=== PATIENT | male | born 1945 | race Caucasian/White ===

== ENCOUNTER 2016-04-05 08:00 | Outpatient (CLI) | payer MEDICARE, OTHER | END 2016-04-05 23:59 | DX: M05.70 Rheumatoid arthritis with rheumatoid factor of unspecified site without organ or systems involvement (principal); Z79.899 Other long term (current) drug therapy ==

== ENCOUNTER 2016-04-06 16:44 | Outpatient (CLI) | payer MEDICARE, OTHER | END 2016-04-06 16:45 | disposition home or self-care (01) | DX: M79.661 Pain in right lower leg (principal) ==

== ENCOUNTER 2016-04-08 10:35 | Emergency (ER) | payer MEDICARE, OTHER ==
[2016-04-08] MEDS ORDERED: PIPERACILLIN/TAZOBACTAM 3.375 GM in SODIUM CHLORIDE 0.9% MINIBAG 100 ML IV STA (12:30)
[2016-04-08] MEDS ORDERED: oxyCODONE 5 MG TABLET PO STA ×2 (12:30→17:26)
[2016-04-08] MEDS ORDERED: VANCOMYCIN INJ 1 GM in SODIUM CHLORIDE 0.9% 250 ML IV STA (12:30)
[2016-04-08] MEDS ORDERED: oxyCODONE 5 MG TABLET ONE ×2 (12:58→17:26)
[2016-04-08] MEDS ORDERED: VANCOMYCIN 1 GM VIAL ONE (15:33)
== END 2016-04-08 17:36 | disposition home or self-care (01) ==
DX: R27.0 Ataxia, unspecified (principal); L03.116 Cellulitis of left lower limb; L03.115 Cellulitis of right lower limb; E11.9 Type 2 diabetes mellitus without complications; Z79.84 Long term (current) use of oral hypoglycemic drugs; I10 Essential (primary) hypertension; E78.00 Pure hypercholesterolemia, unspecified; M19.90 Unspecified osteoarthritis, unspecified site; Z87.19 Personal history of other diseases of the digestive system; F17.200 Nicotine dependence, unspecified, uncomplicated
CPT/HCPCS: 36415; 73590; 80048; 83605; 85025; 87040; 96365; 96375; 99283; 99284; A9270; J3370

== ENCOUNTER 2016-04-12 11:14 | Inpatient (IN) | payer MEDICARE, OTHER ==
[2016-04-12] MEDS ORDERED: AMPICILLIN/SULBACTAM 3 GM in SODIUM CHLORIDE 0.9% MINIBAG 100 ML IV STA (13:07)
[2016-04-12] MEDS ORDERED: VANCOMYCIN INJ 1 GM in SODIUM CHLORIDE 0.9% 250 ML IV STA (13:07)
[2016-04-12] MEDS ORDERED: MORPHINE 2 MG/ML SYRINGE IVP STA (13:08)
[2016-04-12] MEDS ORDERED: VANCOMYCIN INJ 2 GM in SODIUM CHLORIDE 0.9% 500 ML IV STA (13:09)
[2016-04-12] MEDS ORDERED: SODIUM CHLORIDE FLUSH 0.9% 10 ML SYRINGE IVP PRN (13:38)
[2016-04-12] MEDS ORDERED: ONDANSETRON 4 MG/2 ML VIAL IVP PRN (13:38)
[2016-04-12] MEDS ORDERED: VANCOMYCIN PER PHARMACY 1 GM in SODIUM CHLORIDE 0.9% 250 ML IV SCH (14:00)
[2016-04-12] MEDS ORDERED: MORPHINE 2 MG/ML SYRINGE ONE (14:33)
[2016-04-12] MEDS ORDERED: HYDROcod/ACETAM 5/325 MG TABLET PO PRN (14:33)
[2016-04-12] MEDS: SODIUM CHLORIDE FLUSH 0.9% 10 ML SYRINGE IVP SCH ×2 (15:49→21:04)
[2016-04-12] MEDS: NICOTINE 21 MG PATCH TOP SCH (16:51)
[2016-04-12] MEDS: INSULIN ASPART 300 UNIT/3 ML PEN SUBQ SCH ×2 (16:51→21:04)
[2016-04-12] MEDS: CEFEPIME 2 GM in SODIUM CHLORIDE 0.9% MINIBAG 100 ML IV SCH (17:11)
[2016-04-12] MEDS ORDERED: oxyCODONE 5 MG TABLET PO SCH (20:09)
[2016-04-12] MEDS: LORazepam 0.5 MG TABLET PO SCH (21:02)
[2016-04-12] MEDS: ATORVASTATIN 10 MG TABLET PO SCH (21:03)
[2016-04-12] MEDS: VERAPAMIL ER 120 MG TABLET PO SCH (23:21)
[2016-04-13] MEDS: oxyCODONE 5 MG TABLET PO PRN ×5 (01:33→22:25)
[2016-04-13] MEDS: MORPHINE 2 MG/ML SYRINGE IVP PRN ×3 (05:24→20:33)
[2016-04-13] MEDS: SODIUM CHLORIDE FLUSH 0.9% 10 ML SYRINGE IVP SCH ×3 (05:25→22:20)
[2016-04-13] MEDS: LEVOTHYROXINE 25 MCG TABLET PO SCH (06:18)
[2016-04-13] MEDS: LORazepam 0.5 MG TABLET PO SCH ×3 (06:18→22:25)
[2016-04-13] MEDS: INSULIN ASPART 300 UNIT/3 ML PEN SUBQ SCH ×4 (08:15→20:39)
[2016-04-13] MEDS: POLYETHYLENE GLYCOL 3350 17 GM PACKET PO SCH (08:16)
[2016-04-13] MEDS: ENOXAPARIN 40 MG/0.4 ML SYRINGE SUBQ SCH (08:16)
[2016-04-13] MEDS: CEFEPIME 2 GM in SODIUM CHLORIDE 0.9% MINIBAG 100 ML IV SCH ×2 (08:16→20:35)
[2016-04-13] MEDS: hydroCHLOROthiazide 25 MG TABLET PO SCH (08:17)
[2016-04-13] MEDS: VERAPAMIL ER 120 MG TABLET PO SCH ×2 (08:17→20:34)
[2016-04-13] MEDS: SENNA 8.6 MG TABLET PO SCH (08:17)
[2016-04-13] MEDS: DOCUSATE SODIUM 250 MG CAPSULE PO SCH (08:17)
[2016-04-13] MEDS: SERTRALINE 50 MG TABLET PO SCH (08:17)
[2016-04-13] MEDS: NICOTINE 21 MG PATCH TOP SCH (08:18)
[2016-04-13] MEDS ORDERED: IPRATROPIUM/ALBUTEROL 3 ML NEB INH ONE (10:57)
[2016-04-13] MEDS ORDERED: ALBUTEROL NEB 2.5 MG/3 ML INH PRN (11:06)
[2016-04-13] MEDS ORDERED: IPRATROPIUM/ALBUTEROL 3 ML NEB INH PRN (11:06)
[2016-04-13] MEDS ORDERED: VANCOMYCIN INJ 1 GM, VANCOMYCIN INJ 500 MG in SODIUM CHLORIDE 0.9% 500 ML IV SCH ×6 (16:00)
[2016-04-13] MEDS ORDERED: ZOLPIDEM 5 MG TABLET PO PRN (17:27)
[2016-04-13] MEDS: ATORVASTATIN 10 MG TABLET PO SCH (20:35)
[2016-04-13] MEDS ORDERED: GABAPENTIN 100 MG CAPSULE PO SCH (21:00)
[2016-04-14] MEDS: MORPHINE 2 MG/ML SYRINGE IVP PRN ×2 (01:17→05:33)
[2016-04-14] MEDS: oxyCODONE 5 MG TABLET PO PRN ×2 (02:16→06:25)
[2016-04-14] MEDS: LORazepam 0.5 MG TABLET PO SCH (06:25)
[2016-04-14] MEDS: LEVOTHYROXINE 25 MCG TABLET PO SCH (06:26)
[2016-04-14] MEDS: POLYETHYLENE GLYCOL 3350 17 GM PACKET PO SCH (08:18)
[2016-04-14] MEDS: CEFEPIME 2 GM in SODIUM CHLORIDE 0.9% MINIBAG 100 ML IV SCH (08:18)
[2016-04-14] MEDS: ENOXAPARIN 40 MG/0.4 ML SYRINGE SUBQ SCH (08:18)
[2016-04-14] MEDS: INSULIN ASPART 300 UNIT/3 ML PEN SUBQ SCH (08:19)
[2016-04-14] MEDS: hydroCHLOROthiazide 25 MG TABLET PO SCH (08:19)
[2016-04-14] MEDS: VERAPAMIL ER 120 MG TABLET PO SCH (08:19)
[2016-04-14] MEDS: DOCUSATE SODIUM 250 MG CAPSULE PO SCH (08:19)
[2016-04-14] MEDS: SENNA 8.6 MG TABLET PO SCH (08:19)
[2016-04-14] MEDS: SERTRALINE 50 MG TABLET PO SCH (08:19)
[2016-04-14] MEDS: FUROSEMIDE 40 MG/4 ML VIAL IVP SCH ×2 (08:21→10:27)
[2016-04-14] MEDS: NICOTINE 21 MG PATCH TOP SCH (08:22)
[2016-04-14] MEDS: SODIUM CHLORIDE FLUSH 0.9% 10 ML SYRINGE IVP SCH (08:24)
== END 2016-04-14 12:21 | disposition home or self-care (01) | DRG 603 ==
DX: L03.115 Cellulitis of right lower limb (principal); I10 Essential (primary) hypertension; I35.2 Nonrheumatic aortic (valve) stenosis with insufficiency; E11.9 Type 2 diabetes mellitus without complications; I12.9 Hypertensive chronic kidney disease with stage 1 through stage 4 chronic kidney disease, or unspecified chronic kidney disease; E11.22 Type 2 diabetes mellitus with diabetic chronic kidney disease; M19.90 Unspecified osteoarthritis, unspecified site; F17.200 Nicotine dependence, unspecified, uncomplicated; E11.65 Type 2 diabetes mellitus with hyperglycemia; Z79.891 Long term (current) use of opiate analgesic; N18.9 Chronic kidney disease, unspecified; E86.0 Dehydration; F17.210 Nicotine dependence, cigarettes, uncomplicated; R60.0 Localized edema; M06.9 Rheumatoid arthritis, unspecified; E78.00 Pure hypercholesterolemia, unspecified; F32.9 Major depressive disorder, single episode, unspecified; F40.240 Claustrophobia; Z79.84 Long term (current) use of oral hypoglycemic drugs; Z79.899 Other long term (current) drug therapy; W57.XXXS Bitten or stung by nonvenomous insect and other nonvenomous arthropods, sequela

== ENCOUNTER 2016-04-16 19:18 | Inpatient (IN) | payer MEDICARE, OTHER ==
[2016-04-16] MEDS ORDERED: MORPHINE 10 MG/ML VIAL IVP STA (21:36)
[2016-04-16] MEDS ORDERED: MORPHINE 2 MG/ML SYRINGE ONE (21:39)
[2016-04-16] MEDS ORDERED: CEFEPIME 2 GM in SODIUM CHLORIDE 0.9% MINIBAG 100 ML IV STA (21:43)
[2016-04-16] MEDS ORDERED: AZITHROMYCIN INJ 500 MG in SODIUM CHLORIDE 0.9% 250 ML IV STA (21:43)
[2016-04-16] MEDS ORDERED: VANCOMYCIN INJ 1.5 GM in SODIUM CHLORIDE 0.9% 500 ML IV STA (21:44)
[2016-04-16] MEDS ORDERED: ONDANSETRON 4 MG/2 ML VIAL IM PRN (22:46)
[2016-04-16] MEDS ORDERED: LORazepam 0.5 MG TABLET PO SCH (23:00)
[2016-04-16] MEDS ORDERED: VERAPAMIL HCL 240 MG PO SCH (23:00)
[2016-04-16] MEDS ORDERED: LORAZEPAM 2 MG PO SCH (23:00)
[2016-04-17] MEDS: traMADol 50 MG TABLET PO PRN ×2 (00:18→10:59)
[2016-04-17] MEDS: VERAPAMIL ER 120 MG TABLET PO SCH ×2 (00:52→08:37)
[2016-04-17] MEDS ORDERED: POLYETHYLENE GLYCOL 3350 17 GM PACKET PO PRN (00:56)
[2016-04-17] MEDS ORDERED: VANCOMYCIN 500 MG VIAL ONE (01:05)
[2016-04-17] MEDS ORDERED: VANCOMYCIN 1 GM VIAL ONE (01:05)
[2016-04-17] MEDS ORDERED: SODIUM CHLORIDE 0.9% 500 ML IV ONE (01:11)
[2016-04-17] MEDS ORDERED: GLUCAGON 1 MG/ML VIAL SUBQ PRN (02:11)
[2016-04-17] MEDS ORDERED: DEXTROSE GEL 37.5 GM TUBE PO PRN (02:11)
[2016-04-17] MEDS ORDERED: DEXTROSE 50% ABBOJECT 25 GM/50 ML SYRINGE IVP PRN (02:11)
[2016-04-17] MEDS ORDERED: DEXTROSE 5% 1,000 ML IV PRN (02:11)
[2016-04-17] MEDS ORDERED: IPRATROPIUM/ALBUTEROL 3 ML NEB INH PRN (02:14)
[2016-04-17] MEDS ORDERED: ALBUTEROL NEB 2.5 MG/3 ML INH PRN (02:14)
[2016-04-17] MEDS ORDERED: diazePAM 5 MG TABLET PO STA (04:08)
[2016-04-17] MEDS ORDERED: LORazepam 0.5 MG TABLET PO SCH (04:10)
[2016-04-17] MEDS: SODIUM CHLORIDE FLUSH 0.9% 10 ML SYRINGE IVP SCH ×3 (06:08→14:30)
[2016-04-17] MEDS: MORPHINE 2 MG/ML SYRINGE IVP PRN ×6 (06:08→14:29)
[2016-04-17] MEDS ORDERED: SACCHAROMYCES BOULARDII 250 MG CAPSULE PO SCH (08:00)
[2016-04-17] MEDS: INSULIN ASPART 300 UNIT/3 ML PEN SUBQ SCH ×2 (08:27→12:31)
[2016-04-17] MEDS ORDERED: ASPIRIN CHEW 81 MG TABLET PO SCH (09:00)
[2016-04-17] MEDS ORDERED: CEFEPIME 1 GM in SODIUM CHLORIDE 0.9% MINIBAG 100 ML IV SCH (09:00)
[2016-04-17] MEDS ORDERED: SERTRALINE 50 MG TABLET PO SCH (09:00)
[2016-04-17] MEDS ORDERED: VANCOMYCIN PER PHARMACY 1 GM in SODIUM CHLORIDE 0.9% 250 ML IV SCH (09:00)
[2016-04-17] MEDS ORDERED: POLYETHYLENE GLYCOL 3350 17 GM PACKET PO SCH (09:00)
[2016-04-17] MEDS ORDERED: FUROSEMIDE 40 MG/4 ML VIAL IVP SCH (09:30)
[2016-04-17] MEDS: SODIUM CHLORIDE FLUSH 0.9% 10 ML SYRINGE IVP PRN ×2 (10:46→10:59)
[2016-04-17] MEDS ORDERED: VANCOMYCIN INJ 1 GM in SODIUM CHLORIDE 0.9% 250 ML IV SCH (13:00)
== END 2016-04-17 14:50 | disposition short-term general hospital (02) | DRG 194 ==
DX: J18.9 Pneumonia, unspecified organism (principal); E87.1 Hypo-osmolality and hyponatremia; N17.9 Acute kidney failure, unspecified; I10 Essential (primary) hypertension; E78.00 Pure hypercholesterolemia, unspecified; L03.115 Cellulitis of right lower limb; I35.0 Nonrheumatic aortic (valve) stenosis; Y95 Nosocomial condition; F17.200 Nicotine dependence, unspecified, uncomplicated; E66.9 Obesity, unspecified; Z68.32 Body mass index [BMI] 32.0-32.9, adult; Z79.82 Long term (current) use of aspirin; Z79.84 Long term (current) use of oral hypoglycemic drugs; F32.9 Major depressive disorder, single episode, unspecified; F40.240 Claustrophobia; I12.9 Hypertensive chronic kidney disease with stage 1 through stage 4 chronic kidney disease, or unspecified chronic kidney disease; E11.22 Type 2 diabetes mellitus with diabetic chronic kidney disease; N18.2 Chronic kidney disease, stage 2 (mild); I35.2 Nonrheumatic aortic (valve) stenosis with insufficiency; M06.9 Rheumatoid arthritis, unspecified; E78.5 Hyperlipidemia, unspecified; Z98.1 Arthrodesis status; Z80.49 Family history of malignant neoplasm of other genital organs; R59.1 Generalized enlarged lymph nodes; R60.0 Localized edema; I87.8 Other specified disorders of veins

== ENCOUNTER 2016-06-28 15:03 | Outpatient (CLI) | payer MEDICARE, OTHER | END 2016-06-28 15:04 | disposition home or self-care (01) | DX: M17.11 Unilateral primary osteoarthritis, right knee (principal); M06.9 Rheumatoid arthritis, unspecified; M25.561 Pain in right knee ==

== ENCOUNTER 2016-08-01 08:00 | Outpatient (CLI) | payer MEDICARE, OTHER ==
[2016-08-01 18:15] LABS: HGB - HEMOGLOBIN 12.5 g/dL (14.0-18.0); MEAN CORPUSCULAR HEMOGLOBIN 29.5 pg (27.0-31.0); MEAN CORPUSCULAR HGB CONC 32.9 g/dL (32.0-36.0); MEAN CORPUSCULAR VOLUME 89.6 fL (80.0-94.0); MEAN PLATELET VOLUME 7.9 fL (7.4-11.4); RED BLOOD COUNT 4.24 10^6/uL (4.70-6.10); WHITE BLOOD COUNT 6.7 x10^3/uL (4.8-10.8)
== END 2016-08-01 08:01 | disposition home or self-care (01) ==
LOC: LAB.F 08:00
PROVIDERS: ATTEND Internal Medicine Cardiovascular Disease
DX: D64.9 Anemia, unspecified (principal)
CPT/HCPCS: 36415

== ENCOUNTER 2016-08-08 15:30 | Outpatient (CLI) | payer MEDICARE, OTHER ==
[2016-08-08 18:15] LABS: ALBUMIN/GLOBULIN RATIO 1.1 (1.0-2.2); BILIRUBIN,TOTAL 0.4 mg/dL (0.2-1.0); CALCIUM 9.5 mg/dL (8.5-10.3); CREATININE 0.8 mg/dL (0.6-1.2); POTASSIUM 4.2 mmol/L (3.5-5.0)
[2016-08-08 18:32] LABS: BASOPHILS # (AUTO) 0.1 10^3/uL (0.0-0.1); BASOPHILS % (AUTO) 0.9 %; EOSINOPHILS # (AUTO) 0.1 10^3/uL (0.0-0.7); EOSINOPHILS % (AUTO) 1.9 %; HGB - HEMOGLOBIN 12.3 g/dL (14.0-18.0); LYMPHOCYTES # (AUTO) 0.7 10^3/uL (1.5-3.5); LYMPHOCYTES % (AUTO) 9.4 %; MEAN CORPUSCULAR HGB CONC 34.1 g/dL (32.0-36.0); MEAN CORPUSCULAR VOLUME 88.1 fL (80.0-94.0); MEAN PLATELET VOLUME 7.7 fL (7.4-11.4); MONOCYTES # (AUTO) 0.9 10^3/uL (0.0-1.0); MONOCYTES % (AUTO) 11.2 %; NEUTROPHILS % (AUTO) 76.6 %; RED BLOOD COUNT 4.09 10^6/uL (4.70-6.10); RED CELL DISTRIBUTION WIDTH 17.6 % (12.0-15.0); UNCORRECTED WHITE BLOOD COUNT 7.9 x10^3/uL; WHITE BLOOD COUNT 7.9 x10^3/uL (4.8-10.8)
== END 2016-08-08 15:31 | disposition home or self-care (01) ==
LOC: LAB.F 15:30
PROVIDERS: ATTEND Specialist
DX: I10 Essential (primary) hypertension (principal); E03.9 Hypothyroidism, unspecified; R06.00 Dyspnea, unspecified; I26.99 Other pulmonary embolism without acute cor pulmonale
CPT/HCPCS: 36415; 80053; 83880; 84443; 85025; 87081; 87640

== ENCOUNTER 2016-08-09 10:52 | Outpatient (CLI) | payer MEDICARE, OTHER ==
--- NOTE | 2016-08-09 11:32 | XRAY Report ---
TWO VIEW CHEST: 08/09/2016 CLINICAL INDICATION: COPD. COMPARISON: CT of 04/17/2016, plain film of 04/16/2016. FINDINGS: Frontal and lateral views of the chest demonstrate a normal cardiac silhouette. COPD and b ibasilar atelectasis appear stable. Calcified granuloma at the right base is unchanged. No new consol idation, effusion, or pneumothorax is present. IMPRESSION: STABLE COPD AND BIBASILAR ATELECTASIS. NO EVIDENCE OF ACUTE CARDIOPULMONARY DISEASE. :9 JOB #: [id number] EXT JOB #:[id number]
== END 2016-08-09 10:53 | disposition home or self-care (01) ==
LOC: DI.S 10:52
PROVIDERS: ATTEND Specialist
DX: J44.9 Chronic obstructive pulmonary disease, unspecified (principal); R07.89 Other chest pain; E11.9 Type 2 diabetes mellitus without complications; J98.11 Atelectasis
CPT/HCPCS: 71020

== ENCOUNTER 2016-09-24 05:30 | Inpatient (IN) | payer MEDICARE, OTHER ==
[2016-09-24] MEDS ORDERED: ceFAZolin 2 GM/50 ML 50 ML IV ONE (06:27)
[2016-09-24] MEDS ORDERED: NITROGLYCERIN 2% PASTE TOP ONE (07:06)
[2016-09-24] MEDS ORDERED: LACTATED RINGERS 1,000 ML IV ONE ×3 (07:20→09:15)
[2016-09-24] MEDS ORDERED: MORPHINE PF 5 MG/10 ML AMP SUBQ ONE ×2 (08:54→10:25)
[2016-09-24] MEDS ORDERED: KETOROLAC 15 MG/ML VIAL IVP ONE ×2 (08:54→10:25)
[2016-09-24] MEDS ORDERED: BUPIVACAINE 0.5%-EPI 1:200000 PF 30 ML VIAL SUBQ ONE ×3 (08:54→11:05)
[2016-09-24] MEDS ORDERED: EPINEPHrine 1 MG/ML AMP IVP ONE ×2 (08:54→10:25)
[2016-09-24] MEDS ORDERED: ROPIVACAINE 0.2% PF 20 ML AMPULE SUBQ ONE ×2 (08:54→10:25)
[2016-09-24] MEDS ORDERED: DEXAMETHASONE 4 MG/ML VIAL IVP ONE (11:05)
[2016-09-24] MEDS ORDERED: ePHEDrine 50 MG/ML VIAL IVP ONE (11:05)
[2016-09-24] MEDS ORDERED: MIDAZOLAM 2 MG/2 ML VIAL IVP ONE (11:05)
[2016-09-24] MEDS ORDERED: OXYTOCIN 10 UNIT/ML VIAL IV ONE (11:05)
[2016-09-24] MEDS ORDERED: TRANEXAMIC ACID 1,000 MG/10 ML VIAL IV ONE (11:05)
[2016-09-24] MEDS ORDERED: fentaNYL 100 MCG/2 ML VIAL IVP ONE (11:05)
[2016-09-24] MEDS ORDERED: ONDANSETRON 4 MG/2 ML VIAL IVP PRN (11:16)
[2016-09-24] MEDS ORDERED: PROCHLORPERAZINE 10 MG/2 ML VIAL IVP PRN (11:16)
[2016-09-24] MEDS ORDERED: diphenhydrAMINE 25 MG CAPSULE PO PRN (11:16)
[2016-09-24] MEDS ORDERED: ACETAMINOPHEN 325 MG TABLET PO PRN (11:16)
[2016-09-24] MEDS ORDERED: SODIUM CHLORIDE FLUSH 0.9% 10 ML SYRINGE IVP PRN (11:16)
[2016-09-24] MEDS ORDERED: BISACODYL 10 MG SUPP PR PRN (11:16)
[2016-09-24] MEDS ORDERED: DOCUSATE SODIUM 100 MG CAPSULE PO PRN (11:16)
[2016-09-24] MEDS ORDERED: diphenhydrAMINE INJ 50 MG/ML VIAL IVP PRN (11:16)
[2016-09-24] MEDS ORDERED: ACETAMINOPHEN 1,000 MG/100 ML 100 ML IV PRN (11:16)
[2016-09-24] MEDS ORDERED: SENNA 8.6 MG TABLET PO PRN (11:16)
[2016-09-24] MEDS ORDERED: BISACODYL 5 MG TABLET PO PRN (11:16)
--- NOTE | 2016-09-24 11:32 | OPERATIVE REPORT ---
Operative Report - General Admit Date: 09/24/16 Procedure Date: 09/24/16 Planned Procedure: Right Total Knee Arthroplasty Pre-Op Diagnosis: Right Knee Primary Osteoarthritis Post Op Diagnosis: Same - Procedure Note Primary Surgeon: Tio Goodman MD Anesthesia Provider: Laurel Marroquin CRNA Anesthesia Technique: Local, Regional block, Spinal Pathology: Same Estimated Blood Loss (in cc): 10 Complications: None. - Other Other Information/Narrative: Fluids: 1300 mL LR Urine: 300 mL Condition: Stable. Disposition: PACU >> [facility] Implants: Malik Persona Knee Femoral Component Size 9 PS, Cemented Tibial Tray Size F cemented Tibial Insert, UHMWPE, PS, 10 mm Patellar Comnponent: 9 x 32 mm cemented Palacos Cement
[2016-09-24] MEDS ORDERED: METHOTREXATE 2.5 MG TABLET PO SCH (12:00)
[2016-09-24] MEDS: SODIUM CHLORIDE FLUSH 0.9% 10 ML SYRINGE IVP SCH ×2 (13:04→22:29)
[2016-09-24] MEDS: LACTATED RINGERS 1,000 ML IV SCH ×2 (13:15→18:34)
[2016-09-24] MEDS: KETOROLAC 15 MG/ML VIAL IVP PRN ×2 (16:31→22:33)
[2016-09-24] MEDS: ceFAZolin 2 GM/50 ML 50 ML IV SCH ×2 (16:32→23:44)
--- NOTE | 2016-09-24 17:04 | XRAY Report ---
RIGHT KNEE AP AND LATERAL STATUS POST RIGHT TOTAL KNEE ARTHROPLASTY: 09/24/2016 CLINICAL HISTORY: The patient had a recent right total knee arthroplasty. FINDINGS: The knee arthroplasty demonstrates the prosthesis in anatomical position and alignment. Air is noted in the right suprapatellar bursa. Vascular calcification is noted in the popliteal artery. Mild subcutaneous soft tissue swelling is noted along the anterior lateral aspect of the right knee. In order for the tibial component to align with the femoral component of the knee arthroplasty, a 0.7 cm aspect of the lateral tibial plateau is not covered by the tibial component of the arthroplasty. IMPRESSION: EVIDENCE OF RIGHT TOTAL KNEE ARTHROPLASTY WITH ANATOMICAL POSITION AND ALIGNMENT SEEN OF THE RIGHT TOTAL KNEE PROSTHESIS. JOB #: [id number] EXT JOB #: [id number] MASON
[2016-09-24] MEDS: FERROUS SULFATE 325 MG TABLET PO SCH (17:49)
[2016-09-24] MEDS: metFORMIN 500 MG TABLET PO SCH (17:49)
[2016-09-24 18:05] LABS: BASOPHILS % (AUTO) 0.4 %; EOSINOPHILS % (AUTO) 0.1 %; HCT - HEMATOCRIT 34.2 % (42.0-52.0); HGB - HEMOGLOBIN 11.2 g/dL (14.0-18.0); LYMPHOCYTES # (AUTO) 0.4 10^3/uL (1.5-3.5); LYMPHOCYTES % (AUTO) 3.6 %; MEAN CORPUSCULAR HEMOGLOBIN 28.7 pg (27.0-31.0); MEAN CORPUSCULAR HGB CONC 32.9 g/dL (32.0-36.0); MEAN CORPUSCULAR VOLUME 87.3 fL (80.0-94.0); MEAN PLATELET VOLUME 7.6 fL (7.4-11.4); MONOCYTES # (AUTO) 0.3 10^3/uL (0.0-1.0); MONOCYTES % (AUTO) 2.9 %; NEUTROPHILS # (AUTO) 10.4 10^3/uL (1.5-6.6); RED BLOOD COUNT 3.91 10^6/uL (4.70-6.10); RED CELL DISTRIBUTION WIDTH 17.3 % (12.0-15.0); UNCORRECTED WHITE BLOOD COUNT 11.2 x10^3/uL; WHITE BLOOD COUNT 11.2 x10^3/uL (4.8-10.8)
[2016-09-24 18:14] LABS: HEMOGLOBIN A1C 0.84 g/dL
[2016-09-24] MEDS: ENOXAPARIN 40 MG/0.4 ML SYRINGE SUBQ SCH (21:09)
[2016-09-24] MEDS: ATORVASTATIN 10 MG TABLET PO SCH (21:10)
[2016-09-24] MEDS: LORazepam 0.5 MG TABLET PO SCH (21:10)
[2016-09-24] MEDS: CYANOCOBALAMIN 500 MCG TABLET PO SCH (21:10)
[2016-09-24] MEDS: traMADol 50 MG TABLET PO PRN (23:43)
[2016-09-25] MEDS ORDERED: INSULIN REGULAR HUMAN 100 UNIT/1 ML 10 ML MDV SUBQ STA (00:15)
[2016-09-25] MEDS: INSULIN ASPART 300 UNIT/3 ML PEN SUBQ SCH ×5 (00:33→21:21)
[2016-09-25] MEDS: HYDROmorphone 1 MG/ML SYRINGE IVP PRN ×3 (00:38→19:04)
[2016-09-25] MEDS: SODIUM CHLORIDE 0.9% 1,000 ML IV SCH ×3 (00:51→20:50)
[2016-09-25 05:43] LABS: BASOPHILS # (AUTO) 0.1 10^3/uL (0.0-0.1); BASOPHILS % (AUTO) 0.5 %; HCT - HEMATOCRIT 31.2 % (42.0-52.0); HGB - HEMOGLOBIN 10.5 g/dL (14.0-18.0); LYMPHOCYTES # (AUTO) 1.1 10^3/uL (1.5-3.5); MEAN CORPUSCULAR HEMOGLOBIN 29.2 pg (27.0-31.0); MEAN CORPUSCULAR HGB CONC 33.7 g/dL (32.0-36.0); MEAN CORPUSCULAR VOLUME 86.7 fL (80.0-94.0); MEAN PLATELET VOLUME 7.4 fL (7.4-11.4); MONOCYTES # (AUTO) 1.4 10^3/uL (0.0-1.0); MONOCYTES % (AUTO) 11.9 %; NEUTROPHILS # (AUTO) 9.3 10^3/uL (1.5-6.6); NEUTROPHILS % (AUTO) 78.6 %; RED CELL DISTRIBUTION WIDTH 17.2 % (12.0-15.0); UNCORRECTED WHITE BLOOD COUNT 11.9 x10^3/uL; WHITE BLOOD COUNT 11.9 x10^3/uL (4.8-10.8)
[2016-09-25 05:50] LABS: BUN - BLOOD UREA NITROGEN 14 mg/dL (6-20); CARBON DIOXIDE - CO2 23 mmol/L (21-32); CHLORIDE 99 mmol/L (101-111); CREATININE 0.8 mg/dL (0.6-1.2); GFR - MDRD 95 (>89); GLUCOSE 133 mg/dL (70-100); POTASSIUM 3.9 mmol/L (3.5-5.0); SODIUM 131 mmol/L (135-145)
[2016-09-25] MEDS: SODIUM CHLORIDE FLUSH 0.9% 10 ML SYRINGE IVP SCH ×3 (06:15→21:21)
[2016-09-25] MEDS: KETOROLAC 15 MG/ML VIAL IVP PRN ×2 (06:25→12:50)
[2016-09-25] MEDS: LEVOTHYROXINE 25 MCG TABLET PO SCH (06:25)
[2016-09-25] MEDS: metFORMIN 500 MG TABLET PO SCH (08:14)
[2016-09-25] MEDS: SERTRALINE 50 MG TABLET PO SCH (08:15)
[2016-09-25] MEDS: CHOLECALCIFEROL 1,000 UNIT TABLET PO SCH (08:15)
[2016-09-25] MEDS: FERROUS SULFATE 325 MG TABLET PO SCH ×2 (08:16→17:30)
[2016-09-25] MEDS: CYANOCOBALAMIN 500 MCG TABLET PO SCH ×2 (08:16→21:19)
[2016-09-25] MEDS: traMADol 50 MG TABLET PO PRN ×3 (08:17→17:30)
[2016-09-25] MEDS: SENNA 8.6 MG TABLET PO SCH (12:47)
[2016-09-25] MEDS: DOCUSATE SODIUM 250 MG CAPSULE PO SCH (12:47)
[2016-09-25] MEDS ORDERED: INSULIN ASPART 300 UNIT/3 ML PEN SUBQ SCH (17:00)
[2016-09-25] MEDS ORDERED: INSULIN GLARGINE 300 UNIT/3 ML PEN SUBQ SCH (21:00)
[2016-09-25] MEDS: LORazepam 0.5 MG TABLET PO SCH (21:19)
[2016-09-25] MEDS: HYDROcod/ACETAM 5/325 MG TABLET PO PRN (21:19)
[2016-09-25] MEDS: ATORVASTATIN 10 MG TABLET PO SCH (21:20)
[2016-09-25] MEDS: ENOXAPARIN 40 MG/0.4 ML SYRINGE SUBQ SCH (21:21)
[2016-09-26] MEDS: HYDROcod/ACETAM 5/325 MG TABLET PO PRN ×2 (02:40→08:21)
[2016-09-26] MEDS: traMADol 50 MG TABLET PO PRN ×2 (03:24→07:34)
[2016-09-26 06:21] LABS: BASOPHILS # (AUTO) 0.1 10^3/uL (0.0-0.1); BASOPHILS % (AUTO) 1.2 %; EOSINOPHILS % (AUTO) 0.4 %; HGB - HEMOGLOBIN 10.2 g/dL (14.0-18.0); LYMPHOCYTES # (AUTO) 1.3 10^3/uL (1.5-3.5); LYMPHOCYTES % (AUTO) 11.3 %; MEAN CORPUSCULAR HEMOGLOBIN 28.3 pg (27.0-31.0); MEAN CORPUSCULAR HGB CONC 32.7 g/dL (32.0-36.0); MEAN CORPUSCULAR VOLUME 86.6 fL (80.0-94.0); MEAN PLATELET VOLUME 7.6 fL (7.4-11.4); MONOCYTES # (AUTO) 1.6 10^3/uL (0.0-1.0); MONOCYTES % (AUTO) 13.8 %; NEUTROPHILS # (AUTO) 8.3 10^3/uL (1.5-6.6); NEUTROPHILS % (AUTO) 73.3 %; RED BLOOD COUNT 3.58 10^6/uL (4.70-6.10); RED CELL DISTRIBUTION WIDTH 17.4 % (12.0-15.0); UNCORRECTED WHITE BLOOD COUNT 11.3 x10^3/uL; WHITE BLOOD COUNT 11.3 x10^3/uL (4.8-10.8)
[2016-09-26] MEDS: SODIUM CHLORIDE FLUSH 0.9% 10 ML SYRINGE IVP SCH ×2 (06:28→10:31)
[2016-09-26] MEDS: LEVOTHYROXINE 25 MCG TABLET PO SCH (06:28)
[2016-09-26] MEDS: SODIUM CHLORIDE 0.9% 1,000 ML IV SCH (06:28)
[2016-09-26 06:33] LABS: BUN - BLOOD UREA NITROGEN 11 mg/dL (6-20); CALCIUM 8.9 mg/dL (8.5-10.3); CARBON DIOXIDE - CO2 22 mmol/L (21-32); CHLORIDE 95 mmol/L (101-111); CREATININE 0.6 mg/dL (0.6-1.2); GFR - MDRD 132 (>89); GLUCOSE 184 mg/dL (70-100); POTASSIUM 3.6 mmol/L (3.5-5.0); SODIUM 127 mmol/L (135-145)
[2016-09-26 06:53] LABS: NP AUTO DIFFERENTIAL? NO; NP MAN DIFFERENTIAL? YES; PLATELET ESTIMATE, MANUAL NORMAL (130-450,000) (NORMAL); PLATELET MORPHOLOGY NORMAL APPEARANCE (NORMAL)
[2016-09-26] MEDS ORDERED: INSULIN GLARGINE 300 UNIT/3 ML PEN SUBQ SCH (08:00)
[2016-09-26 08:01] VITALS: BP 162/65
[2016-09-26] MEDS: SERTRALINE 50 MG TABLET PO SCH (08:21)
[2016-09-26] MEDS: CHOLECALCIFEROL 1,000 UNIT TABLET PO SCH (08:22)
[2016-09-26] MEDS: FERROUS SULFATE 325 MG TABLET PO SCH (08:23)
[2016-09-26] MEDS: CYANOCOBALAMIN 500 MCG TABLET PO SCH (08:23)
[2016-09-26] MEDS: SENNA 8.6 MG TABLET PO SCH (08:23)
[2016-09-26] MEDS: INSULIN ASPART 300 UNIT/3 ML PEN SUBQ SCH (08:24)
[2016-09-26] MEDS: DOCUSATE SODIUM 250 MG CAPSULE PO SCH (08:24)
--- NOTE | 2016-09-26 09:24 | PROVIDER PROGRESS NOTE ---
Subjective - Prog Note Date Prog Note Date: 09/26/16 - Subjective Pt reports feeling: Improved (Doing very well. Still having issues with glucose control. Pain issues overnight resolved with Hydrocodone/APAP.) Objective - Vital Signs/Intake & Output Reviewed Vital Signs: Yes Vital Signs: Vital Signs x48h Temp Pulse Resp BP Pulse Ox 09/26/16 08:00 37.2 C 87 20 162/65 H 92 09/26/16 05:06 37.3 C 87 18 152/74 H 93 Intake & Output: Intake & Output 09/23/16 09/24/16 09/25/16 09/26/16 23:59 23:59 23:59 23:59 Intake Total 4333 3694 350 Output Total 2650 1250 1300 Balance 1683 3864 -950 - Objective General Appearance: positive: No acute distress, Alert Eyes Bilateral: positive: Normal inspection ENT: positive: ENT inspection nml Neck: positive: Nml inspection Respiratory: positive: No respiratory distress, Breath sounds nml Cardiovascular: positive: Regular rate & rhythm Peripheral Pulses: 2+ Dorsalis pedis (R), 2+ Posterior tibialis (R) Abdomen: positive: Non-tender, Nml bowel sounds, No distention. negative: Guarding Back: positive: Nml inspection Skin: positive: Color nml, No rash, Warm, Dry Extremities: positive: Other (Right knee wound with scant serous discharge, no fluctuance, minimal erythema.). negative: Calf tenderness, Lynda's sign/cords - Lab Results Fish Bones: 09/26/16 05:55 09/26/16 05:55 Other Labs: Lab Results x24hrs 09/26/16 09/26/16 09/26/16 Range/Units 07:56 05:55 05:55 WBC 11.3 H (4.8-10.8) x10^3/uL RBC 3.58 L (4.70-6.10) 10^6/uL Hgb 10.2 L (14.0-18.0) g/dL Hct 31.0 L (42.0-52.0) % MCV 86.6 (80.0-94.0) fL MCH 28.3 (27.0-31.0) pg MCHC 32.7 (32.0-36.0) g/dL RDW 17.4 H (12.0-15.0) % Plt Count 324 (130-450) 10^3/uL MPV 7.6 (7.4-11.4) fL Neut # 8.3 H (1.5-6.6) 10^3/uL Lymph # 1.3 L (1.5-3.5) 10^3/uL Hoke # 1.6 H (0.0-1.0) 10^3/uL Eos # 0.0 (0.0-0.7) 10^3/uL Baso # 0.1 (0.0-0.1) 10^3/uL Absolute Nucleated RBC 0.00 x10^3/uL Band Neuts % (Manual) Not Reportable Nucleated RBCs 0.0 /100WBC Differential Comment MANUAL=AUTO DIFF Platelet Estimate NORMAL (130-450,000) (NORMAL) Platelet Morphology NORMAL APPEARANCE (NORMAL) RBC Morph Micro Appear NORMAL APPEARANCE (NORMAL) Sodium 127 L (135-145) mmol/L Potassium 3.6 (3.5-5.0) mmol/L Chloride 95 L (101-111) mmol/L Carbon Dioxide 22 (21-32) mmol/L Anion Gap 10.0 (6-13) BUN 11 (6-20) mg/dL Creatinine 0.6 (0.6-1.2) mg/dL Estimated GFR (MDRD) 132 (>89) Glucose 184 H (70-100) mg/dL POC Whole Bld Glucose 176 H (70 - 100) mg/dL Calcium 8.9 (8.5-10.3) mg/dL Ionized Calcium NO 09/25/16 09/25/16 09/25/16 Range/Units 20:34 17:07 12:42 WBC (4.8-10.8) x10^3/uL RBC (4.70-6.10) 10^6/uL Hgb (14.0-18.0) g/dL Hct (42.0-52.0) % MCV (80.0-94.0) fL MCH (27.0-31.0) pg MCHC (32.0-36.0) g/dL RDW (12.0-15.0) % Plt Count (130-450) 10^3/uL MPV (7.4-11.4) fL Neut # (1.5-6.6) 10^3/uL Lymph # (1.5-3.5) 10^3/uL Hoke # (0.0-1.0) 10^3/uL Eos # (0.0-0.7) 10^3/uL Baso # (0.0-0.1) 10^3/uL Absolute Nucleated RBC x10^3/uL Band Neuts % (Manual) Nucleated RBCs /100WBC Differential Comment Platelet Estimate (NORMAL) Platelet Morphology (NORMAL) RBC Morph Micro Appear (NORMAL) Sodium (135-145) mmol/L Potassium (3.5-5.0) mmol/L Chloride (101-111) mmol/L Carbon Dioxide (21-32) mmol/L Anion Gap (6-13) BUN (6-20) mg/dL Creatinine (0.6-1.2) mg/dL Estimated GFR (MDRD) (>89) Glucose (70-100) mg/dL POC Whole Bld Glucose 246 H 155 H 193 H (70 - 100) mg/dL Calcium (8.5-10.3) mg/dL Ionized Calcium Assessment/Plan - Problem List (1) Status post right knee replacement Impression: Impression: Stable PostOp Plan: 1. Discharge to home. 2. Weightbearing as tolerated Right Lower Extremity with walker. 3. Follow up with Dr. Joel FERRELL for Diabetes control. 4. Follow up with Shai Sanders, two weeks for wound check. (3) Diabetes mellitus Qualifiers: Diabetes mellitus type: type 2 Diabetes mellitus complication status: with hyperglycemia Diabetes mellitus mcc insulin use: without mcc use Qualified Code(s): E11.65 - Type 2 diabetes mellitus with hyperglycemia
--- NOTE | 2016-09-26 09:37 | Discharge Plan ---
Discharge Plan Disposition: 01 Home, Self Care Condition: Good Prescriptions: Bisacodyl [Dulcolax] 10 mg PO Q12H PRN #30 tablet PRN Reason: Constipation traMADol [Ultram] 50 mg PO Q4HR PRN #50 tablet PRN Reason: Breakthrough Pain Diet: Diabetic Activity Restrictions: Wt Bearing as Tolerated Shower Restrictions: No Driving Restrictions: Yes Assistance Devices: Walker Weight Bearing: Full Weight No Smoking: If you smoke, Please STOP! Call for help. Follow-up with: ORESTES HOOVER [Primary Care Provider] - Tio Goodman MD [Provider Admit Priv/Credential] -
[2016-09-26] MEDS: KETOROLAC 15 MG/ML VIAL IVP PRN (10:31)
--- NOTE | 2016-10-16 19:46 | DISCHARGE SUMMARY ---
DATE OF ADMISSION: 09/24/2016 DATE OF DISCHARGE: 09/26/2016 CONDITION ON DISCHARGE: Good. FINAL DIAGNOSES: 1. Right total knee arthroplasty. 2. Aftercare following right knee joint replacement surgery. 3. Acute blood loss anemia. 4. Hematemesis with nausea. 5. Hematochezia. 6. Type 2 diabetes mellitus. PROCEDURES: 1. Right total knee arthroplasty on 09/24/2016. HISTORY OF PRESENT ILLNESS: This is a very pleasant 71-year-old male with a longstanding history of a right leg length discrepancy with severe right knee osteoarthritis which has been debilitating despi te his use of a cane to the left hand, nonsteroidal anti-inflammatory medications which he had to sto p because of dyspepsia. 2) Acetaminophen; 3) physical therapy; 4) exercises; 5) activity modification ; 6) injections to the right knee. Despite all these interventions he had continued to be bothered by pain which was preventing him from sleeping adequately at night. After extensive discussion he elected to proceed with right total knee arthroplasty. LABORATORY DATA: CBC on 09/26/2016 showed a WBC of 11.3, hemoglobin of 10.2, hematocrit of 31.0, a pl atelet count of 324,000, neutrophils of 8.3, lymphocytes of 1.3, monocytes of 1.6. Chemistry showed a sodium of 127, potassium 3.6, chloride of 95, carbon dioxide 22, BUN 11, creatinine 0.6, glucose 184 , and calcium 8.9. HOSPITAL COURSE: The patient underwent an uncomplicated right total knee arthroplasty on 09/24/2016. His postoperative course, however, was complicated by what appeared to have been a GI bleed resulting in a postoperative anemia. It is important to note that his blood loss during the surgery was only a pproximately 10 mL. He underwent workup for his presumed GI bleed and was found to have then stabiliz ed. Physical therapy was employed to help him ambulate and [facility] was [facility]. DISCHARGE MEDICATIONS: 1. Sertraline 50 mg p.o. daily. 2. Rosuvastatin 10 mg p.o. daily. 3. Methotrexate 20 mg p.o. q. 7 days. 4. Lorazepam 0.5 mg p.o. daily. 5. Aspirin 81 mg enteric coated p.o. daily. 6. Cyanocobalamine 1000 mcg sublingual b.i.d. 7. Ibuprofen 200 mg p.o. q.i.d. 8. Clopidogrel 75 mg p.o. daily. 9. Levothyroxine 25 mcg p.o. daily. 10. Ferrous sulfate 325 mg p.o. b.i.d. 11. Tamsulosin 0.4 mg p.o. daily. 12. Potassium chloride 10 meq p.o. daily. 13. Metformin 500 mg p.o. b.i.d. with meals. 14. Lisinopril 40 mg p.o. daily. 15. Amlodipine 10 mg p.o. daily. 16. Cholecalciferol and vitamin D 2000 units p.o. daily. 17. Acetaminophen 325 mg tablet 2 to 3 tablets p.o. q. 4 hours p.r.n. pain. 18. Bisacodyl 5 mg, 10 mg p.o. q. 12 hours p.r.n. constipation. 19. Diphenhydramine 25 mg p.o. q. 6 hours p.r.n. itching. 20. Tramadol 50 mg p.o. q. 4 hours p.r.n. pain. DISCHARGE INSTRUCTIONS: 1. DIET: Diabetic. 2. ACTIVITY: Weightbearing as tolerated right lower extremity with walker. DISCHARGE: Discharge to [facility] for extended rehabilitation. Followup appointments with Orthopaedics, Dr. Goodman, 2 weeks ([phone]) for wound check. CODE STATUS: FULL CODE. JOB #: [id number] EXT JOB #:[id number]
--- NOTE | 2016-10-16 23:05 | OPERATIVE REPORT ---
DATE OF SURGERY: 09/24/2016 00:00:00 PREOPERATIVE DIAGNOSIS: Right knee primary osteoarthritis with a right leg length discrepancy. POSTOPERATIVE DIAGNOSIS: Right knee primary osteoarthritis with a right leg length discrepancy. PROCEDURE: Right total knee arthroplasty. SURGEON: Tio Goodman MD ANESTHESIA PROVIDER: Laurel Marroquin CRNA ANESTHESIA: Local plus regional block plus spinal. PATHOLOGY: Right knee to same. ESTIMATED BLOOD LOSS: 10 mL. COMPLICATIONS: None. TOURNIQUET: To the right thigh at 275 mmHg for 120 minutes without complications. FLUIDS: 1300 mL of Lactated Ringer's. URINE: 300 mL. CONDITION AT END OF PROCEDURE: Stable. DISPOSITION: PACU, then Med/Surg. IMPLANTS 1. Malik Persona Knee femoral component size #9, posterior stabilized, cemented , standard width. 2. Tibial tray size F, cemented. 3. Tibial insert ultra high molecular weight polyethylene posterior stabilized 10 mm. 4. Patellar component 9 x 32 mm, cemented. 5. Palacos cement without antibiotics. INDICATIONS: This is a 71-year-old male with a known history of a leg length discrepancy and severe progressive osteoarthritis of his right knee. Despite conservative measures, including medications, activity modification, injections , exercise, and a cane to the left hand, as well as a lift to the right shoe, he has noted progression in his pain symptoms that are now preventing him from sleeping at night. His most recent injection gave him minimal relief. After thorough discussion of options, the patient has elected to proceed with right total knee arthroplasty. PROCEDURE IN DETAIL: After consent and identification, the patient was brought to the operating room and placed in a supine position on the operating room table. After induction of a general endotracheal anesthesia and appropriate monitoring, appropriate padding was placed, and the arms were outstretched on arm boards. The right lower extremity had a tourniquet placed to the proximal thigh and was prepped and draped per usual sterile fashion for knee surgery. After an appropriate timeout was conducted, we placed the right lower extremity in a padded Emerson leg hameed, which was then sterilely attached to the table. We exsanguinated the extremity with an Esmarch bandage and inflated the tourniquet to 275 mmHg. We made a standard right median parapatellar approach through the skin and subcutaneous tissue on the medial side of the retinaculum to the knee with a # 10 blade scalpel. The patella was everted. Osteophytes were resected with an osteotome and rongeur. The notch was identified and cleared of curtain osteophyte. We then used a 5 mm drill to drill a hole, which we then enlarged in the distal femur at the junction between the Blumensaat line and the trochlea groove. The intramedullary guide was then placed in the right femur. The distal femoral cutting guide was then positioned and used to make a 10 mm distal femoral cut. The distal femoral block was then positioned parallel with the posterior condyles and used to make the anterior femoral cut. We then used the combination distal femoral cutting guide to make the anterior and posterior final cuts, as well as the chamfer cuts. The anterior chamfer block of bone was retained to plug the hole in the distal femur prior to implantation. We sized the distal femoral component to a size #9 standard width, which was positioned and used to complete our block cut with a reciprocating saw. We removed the femoral trial component, placed the tuning fork retractor at the posterior aspect of the knee. We resected the medial and lateral meniscus, as well as the anterior and posterior cruciate ligament remnants. We then placed the extramedullary cutting guide on the anterior tibia, positioning the guide over the second metatarsal. We pinned the tibial cutting guide proximally and used the stylus to determine a 2 mm cut on the low side, which was posterolateral. We then used an oscillating saw to make our proximal tibia cut. We sized our tibial tray to a size F, and our tibial tray trial was then positioned and used to make our notch cuts. With the tibial tray in position, we inserted the femoral trial component and a 10 mm trial insert into the tibial tray. We then reduced the knee and ranged it, and noted good flexion and extension gaps, as well as good varus-valgus stability. With the patella then everted again, we used the calipers and a patellar clamp to measure a 9 mm cut off the underside of the patella. This was done with an oscillating saw. We sized the cut to a 32 mm patellar trial and used the guide to make our 3 drill holes in the patella cut. We then placed a patellar trial component and checked our patellar stability in flexion and extension with our trials in place. All trials were then removed, and we irrigated the knee thoroughly with 3 liters of sterile saline. Following careful irrigation, we placed dry lap sponges in the knee. Meanwhile, 2 batches of Palacos cement were mixed on the back table and placed in the cement gun. They were used to coat the back of a size #9 posterior stabilized femoral component, a size F tibial tray, and a size 9 x 32 mm patellar component. The tibial tray was inserted first and impacted into position, followed by the femoral component, which was likewise impacted into position. The patellar clamp was then used to place the patellar component and clamp it into position. We used a [place] elevator and tonsil forceps to carefully debride any excess cement. Careful inspection was made of the posterior tibial and posterior femoral condylar areas to make sure there was no additional cement. We then extended the knee and reduced the patella, placed the heel on a Roach stand to allow pressure on the femoral and tibial components to allow the cement to cure. Once the cement cured, we again reinspected the knee and thoroughly irrigated the knee. We then sequentially closed the knee with a running interlocked 2-0 Ethilon suture to the median retinaculum. This was followed by interrupted 2-0 Vicryl subcuticular sutures and a running 3-0 Monocryl suture to the dermis. We injected the knee with our 60 mL of Duramorph, Toradol, bupivacaine, and sterile saline. We also injected the incision site with 30 mL of 0.5% Marcaine with epinephrine. On completion of the procedure, we placed a Mepilex silver dressing over the knee. The leg was then wrapped in a 6-inch MILEY bandage from the thigh to the distal lower leg, and a 4-inch MILEY bandage from the mid calf to the toes. The tourniquet was deflated without complication. The patient was then extubated and transferred to the recovery room in good condition, having tolerated the procedure well. JOB #: [id number] EXT JOB #:[id number] MASON
== END 2016-09-26 11:27 | disposition home or self-care (01) | DRG 470 ==
LOC: MS 05:30
PROVIDERS: ADMIT Orthopaedic Surgery; ATTEND Orthopaedic Surgery
PROC: 0SRC0J9 Replacement of Right Knee Joint with Synthetic Substitute, Cemented, Open Approach (ICD-10-PCS; principal; 2016-09-24 07:30)
DX: M17.11 Unilateral primary osteoarthritis, right knee (principal); E11.65 Type 2 diabetes mellitus with hyperglycemia; M21.70 Unequal limb length (acquired), unspecified site; D64.89 Other specified anemias; I10 Essential (primary) hypertension; E03.9 Hypothyroidism, unspecified; F32.9 Major depressive disorder, single episode, unspecified; F41.9 Anxiety disorder, unspecified; E78.5 Hyperlipidemia, unspecified; J44.9 Chronic obstructive pulmonary disease, unspecified; I71.4 Abdominal aortic aneurysm, without rupture; N40.0 Benign prostatic hyperplasia without lower urinary tract symptoms; Z87.891 Personal history of nicotine dependence; Z95.2 Presence of prosthetic heart valve; Z79.84 Long term (current) use of oral hypoglycemic drugs; Z79.899 Other long term (current) drug therapy
CPT/HCPCS: 36415; 80048; 83036; 85014; 85018; 85025

== ENCOUNTER 2016-10-05 14:53 | Outpatient (CLI) | payer MEDICARE, OTHER | END 2016-10-05 14:54 | disposition critical access hospital (66) | LOC: EMS 14:53 | PROVIDERS: ATTEND Surgery | DX: K92.0 Hematemesis (principal) | CPT/HCPCS: A0425; A0427 ==

== ENCOUNTER 2016-10-05 15:29 | Inpatient (IN) | payer MEDICARE, OTHER ==
[2016-10-05] MEDS ORDERED: PANTOPRAZOLE 40 MG VIAL IVP STA (16:05)
--- NOTE | 2016-10-05 16:05 | ED Physician Documentation ---
PD HPI GI BLEED - Stated complaint Stated Complaint: GI BLEED - Chief complaint Chief Complaint: General - History obtained from History obtained from: Patient, EMS - History of Present Illness Timing - onset: Today Timing - duration: Days (1) Timing - details: Abrupt onset Pain level max: 0 Pain level now: 0 Associated symptoms: Coffee ground emesis (x1), Black/tarry stool (x1) Contributing factors: Recent antibiotics (bactrim, keflex), Anticoagulated ( plavix) Improved by: Other (nothing) Worsened by: Other (nothing) Similar symptoms before: Has not had sx before Recently seen: Surgery (s/p R TKR 2 weeks ago) - Additional information Additional information: states history of peptic ulcers in 1960. No endoscopy or colonoscopy in the past 10 years. Review of Systems Ten Systems: 10 systems reviewed and negative Constitutional: denies: Fever, Chills Nose: denies: Rhinorrhea / runny nose, Congestion Throat: denies: Sore throat Cardiac: denies: Chest pain / pressure Respiratory: denies: Cough, Wheezing GI: denies: Abdominal Pain, Nausea, Diarrhea Skin: denies: Rash Musculoskeletal: denies: Neck pain, Back pain Neurologic: denies: Focal weakness, Numbness, Headache PD PAST MEDICAL HISTORY - Past Medical History Cardiovascular: Congestive heart failure, Hypertension, High cholesterol, Valve disorder, Other Respiratory: COPD, Other Neuro: None, Motion sickness Endocrine/Autoimmune: Type 2 diabetes, HyPOthyroidism GI: GI bleed : Benign prostate hypertrophy, Frequency HEENT: None Psych: Depression, Claustrophobia Musculoskeletal: Osteoarthritis, Rheumatoid arthritis Derm: None - Past Surgical History General: Appendectomy, Colonoscopy, Other Ortho: Carpal Tunnel surgery Cardiovascular: Other HEENT: Cataracts - Present Medications Home Medications: Ambulatory Orders Medication Instructions Recorded Confirmed Rosuvastatin [Crestor] 10 mg PO DAILY 01/07/13 10/05/16 Sertraline [Zoloft] 50 mg PO DAILY 01/07/13 10/05/16 Methotrexate 20 mg PO Q7D 04/08/16 10/05/16 Lorazepam [Ativan] 0.5 mg PO DAILY PM 04/12/16 10/05/16 Clopidogrel [Plavix] 75 mg PO DAILY 09/12/16 10/05/16 Cyanocobalamin (Vitamin B-12) 1,000 mcg SL BID 09/12/16 10/05/16 [Vitamin B-12 (1000 mcg sublingual)] Ferrous Sulfate 325 mg PO BID 09/12/16 10/05/16 Levothyroxine [Synthroid] 25 mcg PO QDAC 09/12/16 10/05/16 Cholecalciferol (Vitamin D3) 2,000 unit PO DAILY 09/24/16 10/05/16 [Vitamin D3] Lisinopril [Zestril] 40 mg PO DAILY 09/24/16 10/05/16 Potassium Chloride 10 meq PO DAILY 09/24/16 10/05/16 Tamsulosin [Flomax] 0.4 mg PO DAILY 09/24/16 10/05/16 amLODIPine [Norvasc] 10 mg PO DAILY 09/24/16 10/05/16 metFORMIN [Glucophage] 500 mg PO BIDWM 09/24/16 10/05/16 Acetaminophen [Tylenol] 650 - 975 mg PO Q4HR PRN #0 tablet 09/26/16 10/05/16 Bisacodyl [Dulcolax] 10 mg PO Q12H PRN #30 tablet 09/26/16 10/05/16 diphenhydrAMINE [Benadryl] 25 mg PO Q6H PRN #0 capsule 09/26/16 10/05/16 traMADol [Ultram] 50 mg PO Q4HR PRN #50 tablet 09/26/16 10/05/16 - Allergies Allergies/Adverse Reactions: Allergies Allergy/AdvReac Type Severity Reaction Status Date / Time oxycodone AdvReac Unknown Verified 10/05/16 15:52 - Social History Does the pt smoke?: Yes Smoking Status: Current every day smoker Does the pt drink ETOH?: No Does the pt have substance abuse?: No - Immunizations Immunizations are current?: Yes - POLST Patient has POLST: No PD ED PE NORMAL - Vitals Vital signs reviewed: Yes - General General: Alert and oriented X 3, No acute distress, Well developed/nourished - HEENT HEENT: Moist mucous membranes - Neck Neck: Supple, no meningeal sign - Cardiac Cardiac: RRR - Respiratory Respiratory: No respiratory distress, Clear bilaterally - Abdomen Abdomen: Soft, Non tender, Non distended - Derm Derm: Warm and dry - Extremities Extremities: No tenderness to palpate - Neuro Neuro: Alert and oriented X 3 - Psych Psych: Normal mood, Normal affect Results - Vitals Vitals: Vital Signs - 24 hr 10/05/16 15:42 Temperature 36.6 C Heart Rate 90 Respiratory 18 Rate Blood Pressure 116/47 L O2 Saturation 95 Oxygen O2 Source Room air PD MEDICAL DECISION MAKING - ED course Complexity details: reviewed results, re-evaluated patient, considered differential, d/w patient ED course: Patient is a 71-year-old gentleman who presents to the emergency department with an upper GI bleed. He does take Plavix at home, concern for significant bleeding. Very difficult IV stick and was finally able to draw labs on the patient and his he was going to the floor. These labs will be followed up by the hospitalist. Also discussed the case with Dr. Marcelino, general surgery who will consult on the case as well. 1615 - Dr. Tracy, hospitalist accepts the patient for admission. This document was made in part using voice recognition software. While efforts are made to proofread this document, sound alike and grammatical errors may occur. Departure - Departure Disposition: 66 [facility] DC/Jase Clinical Impression: Upper GI bleed Condition: Stable Discharge Date/Time: 10/05/16 18:07
[2016-10-05] MEDS ORDERED: SODIUM CHLORIDE 0.9% 1,000 ML IV ONE ×2 (16:07)
[2016-10-05] MEDS ORDERED: LORazepam 2 MG/ML SYRINGE IVP STA (16:16)
[2016-10-05] MEDS ORDERED: PANTOPRAZOLE 40 MG VIAL ONE (16:17)
[2016-10-05] MEDS ORDERED: LORazepam 2 MG/ML SYRINGE ONE (16:28)
[2016-10-05] MEDS ORDERED: ONDANSETRON 4 MG/2 ML VIAL IVP PRN (16:42)
[2016-10-05] MEDS ORDERED: LORazepam 2 MG/ML SYRINGE IVP PRN (16:57)
[2016-10-05] MEDS: HYDROmorphone 1 MG/ML SYRINGE IVP PRN ×2 (17:26→19:27)
[2016-10-05] MEDS ORDERED: ceFAZolin 1 GM VIAL IVP SCH (18:00)
[2016-10-05] MEDS: INSULIN REGULAR HUMAN 100 UNIT/1 ML 10 ML MDV SUBQ SCH (18:24)
[2016-10-05 18:26] LABS: BASOPHILS # (AUTO) 0.1 10^3/uL (0.0-0.1); BASOPHILS % (AUTO) 0.8 %; EOSINOPHILS % (AUTO) 0.1 %; HCT - HEMATOCRIT 21.2 % (42.0-52.0); LYMPHOCYTES # (AUTO) 0.9 10^3/uL (1.5-3.5); LYMPHOCYTES % (AUTO) 5.7 %; MEAN CORPUSCULAR HEMOGLOBIN 27.8 pg (27.0-31.0); MEAN CORPUSCULAR HGB CONC 31.6 g/dL (32.0-36.0); MEAN CORPUSCULAR VOLUME 87.9 fL (80.0-94.0); MEAN PLATELET VOLUME 8.6 fL (7.4-11.4); MONOCYTES # (AUTO) 1.3 10^3/uL (0.0-1.0); MONOCYTES % (AUTO) 8.2 %; NEUTROPHILS # (AUTO) 13.2 10^3/uL (1.5-6.6); NEUTROPHILS % (AUTO) 85.2 %; RED BLOOD COUNT 2.41 10^6/uL (4.70-6.10); RED CELL DISTRIBUTION WIDTH 18.1 % (12.0-15.0); UNCORRECTED WHITE BLOOD COUNT 15.5 x10^3/uL; WHITE BLOOD COUNT 15.5 x10^3/uL (4.8-10.8)
[2016-10-05 18:29] LABS: ALBUMIN/GLOBULIN RATIO 0.6 (1.0-2.2); BILIRUBIN,TOTAL 0.5 mg/dL (0.2-1.0); CALCIUM 7.1 mg/dL (8.5-10.3); CREATININE 0.9 mg/dL (0.6-1.2); POTASSIUM 4.6 mmol/L (3.5-5.0); TOTAL PROTEIN 5.4 g/dL (6.7-8.2)
[2016-10-05 18:33] LABS: HGB - HEMOGLOBIN 6.7 g/dL (14.0-18.0)
--- NOTE | 2016-10-05 18:57 | HISTORY & PHYSICAL EXAMINATION ---
Chief Complaint - Chief Complaint Chief Complaint: Hematemesis, hematochezia History of Present Illness - Admitted From Admitted From:: Emergency Department - History Obtained From Records Reviewed: ED report, previous hospitalization H&P History obtained from: Patient and - History of Present Illness HPI Comment/Other: 71-year-old male with a history of a right total knee replacement completed 10 days ago (09/24/16) and severe aortic stenosis with a TAVR procedure on 2016 at [facility] in [place] by Dr. Ordoñez. Patient was seen by his orthopedic , Dr. Goodman two days ago and started on oral Bactrim and Cephalexin for suspected cellulitis around the incision. Patient's Plavix was held for the surgery and was restarted on 09/27/16. Today, he woke up feeling tired and complaining of "not feeling good." He tried to go to the park with his to get some fresh air but was feeling too fatigued. At 1400 he felt nauseated, light-headed and had an upset stomach; they attributed the symptoms to his newly prescribed antibiotics but then he had an episode of hematemesis and dark, melena stool. His reports he was pale and diaphoretic at the time. She called 911 and EMS brought him to the ED. He has a history of a gastric ulcer in the 1960's while he was serving in [place]; it was treated with maalox and milk. He reports having a normal colonoscopy > 10 years ago. He quit smoking cigarettes after 60 years in March and quit drinking alcohol > 10 years ago. He denies taking any aspirin or NSAIDs. In the ED he received a 1 L NS bolus and 40 mg IV protonix. At the time of H&P there are no lab results available as after multiple attempts by lab and nursing a blood specimen was unable to be obtained. Ultrasound was utilized and a blood sample was obtained prior to transfer to medical-surgical unit; although a second IV was not able to be established. Patient currently has a 22g IV to his left hand that is infusing without difficulty. A larger bore IV site is ideal in case of continued bleeding and indication for a blood transfusion. He is hemodynamically stable, SBP 116 and HR in the 90's. He was able to sit up on the edge of the bed and denies feeling light-headed and had no changes in his heart rate. Addendum - 10/05/16 at 2015: a right external jugular catheter and an 18 g catheter to his right antecubital were obtained. CBC returned with hgb 6.7. Patient to be transfused with 2 units of PRBC overnight. Review of Systems - Constitutional Constitutional: reports: Fatigue (Started this morning, unable to enjoy normal activities.), Diaphoresis (Occurred prior to episode of emesis.). denies: Fever , Chills, Poor appetite, Weight gain - Ears, Nose & Throat Ears, Nose & Throat: reports: Dentures (Full set, with patient.). denies: Nasal discharge, Nosebleeds, Mouth lesions, Bleeding gums - Cardiovascular Cariovascular: reports: Edema (Right lower extremity below surgical site (knee) , JAIME hose in place.), Lightheadedness (prior to emesis.), Decr. exercise tolerance (related to pain from total right knee.). denies: Irregular heart rate, Palpitations, Chest pain, Syncope, Orthopnea - Respiratory Respiratory: denies: Cough, Sputum production, Wheezing, Hemoptysis, SOB at rest , SOB with exertion, Apnea - Gastrointestinal Gastrointestinal: reports: Abdominal pain (Discomfort that occurred today.), Black stools (once today.), Nausea, Vomiting (once today), Coffee grounds emesis (once today.). denies: Abdominal distention, Constipation, Diarrhea, Rectal bleeding, Reflux/heartburn - Genitourinary Genitourinary: denies: Dysuria, Frequency, Urgency, Incontinence - Musculoskeletal Musculoskeletal: reports: Limited range of motion, Joint pain (s/p total right knee). denies: Back pain, Muscle aches - Integumentary Integumentary: reports: Rash (Surrounding right knee incision). denies: Dryness , Lumps, Pigment changes - Neurological Neurological: denies: Headache, Dizziness, Numbness, Memory problems - Psychiatric Psychiatric: reports: Depression, Anxiety (Claustrophobia) - Hematologic/Lymphatic Hematologic/Lymphatic: denies: Anemia, Bruising, Petechiae - All Other Systems All Other Systems: reports: Reviewed and negative History - Past Medical History Cardiovascular: reports: Hypertension, High cholesterol, Murmur, Valve disorder (Severe aortic stenosis with TAVR 05/2016 - Dr. Ordoñez) Respiratory: reports: COPD Neuro: reports: Motion sickness Endocrine/Autoimmune: reports: Type 2 diabetes (controlled with Metformin), HyPOthyroidism GI: reports: Ulcers (1960's while serving in [place].) : reports: Benign prostate hypertrophy, Frequency HEENT: reports: None Psych: reports: Depression, Claustrophobia Musculoskeletal: reports: Rheumatoid arthritis Derm: reports: None MRSA Hx?: No - Past Surgical History General: reports: Appendectomy, Colonoscopy (> 10 years ago, patient reports normal.) Ortho: reports: Knee replacement (Right Knee 09/24/16), Carpal Tunnel surgery, Spine surgery (Neck and Lumbar fusion), Other (ORIF right ankle) Cardiovascular: reports: Valve replacement (TAVR 05/16/2016) HEENT: reports: Cataracts - Family & Social History Family History Comment/Other: Mother in her 30's from tuberculosis. Father suffered from severe alcoholism. No siblings. Patient's 44 year old daughter has hypertension. Other daughter at 28 years old from ovarian cancer. Living arrangement: At home Living Situation: With spouse/s.o. Social History Notes: Patient lives at home with his in [place] since 1987. Raised their 2 daughters on [facility], their youngest daughter from ovarian cancer at age 28. He was in the [employer] and was in [place]. He is retired from a career in Construction. His daughter and 2 grandchildren live in [place] and come to visit frequently. He and his enjoy going for walks and going to the beach. He feels "stir crazy" from being immobile after his knee replacement 2 weeks ago. He has been following the guidance of his physical therapy sessions. - Substance History Use: Uses substance without health or social issues: NONE, Alcohol (Quit > 10 years ago.) Tobacco Details: Cigarettes (Started smoking age 13; smoked 1-1.5 ppd for past 58 years. Quit 03/2016.) - POLST Patient has POLST: No POLST Status: Full Code Meds/Allgy - Home Medications Home Medications: Ambulatory Orders Medication Instructions Recorded Confirmed Rosuvastatin [Crestor] 10 mg PO DAILY 01/07/13 10/05/16 Sertraline [Zoloft] 50 mg PO DAILY 01/07/13 10/05/16 Methotrexate 20 mg PO Q7D 04/08/16 10/05/16 Lorazepam [Ativan] 0.5 mg PO DAILY PM 04/12/16 10/05/16 Clopidogrel [Plavix] 75 mg PO DAILY 09/12/16 10/05/16 Cyanocobalamin (Vitamin B-12) 1,000 mcg SL BID 09/12/16 10/05/16 [Vitamin B-12 (1000 mcg sublingual)] Ferrous Sulfate 325 mg PO BID 09/12/16 10/05/16 Levothyroxine [Synthroid] 25 mcg PO QDAC 09/12/16 10/05/16 Cholecalciferol (Vitamin D3) 2,000 unit PO DAILY 09/24/16 10/05/16 [Vitamin D3] Lisinopril [Zestril] 40 mg PO DAILY 09/24/16 10/05/16 Potassium Chloride 10 meq PO DAILY 09/24/16 10/05/16 Tamsulosin [Flomax] 0.4 mg PO DAILY 09/24/16 10/05/16 amLODIPine [Norvasc] 10 mg PO DAILY 09/24/16 10/05/16 metFORMIN [Glucophage] 500 mg PO BIDWM 09/24/16 10/05/16 Acetaminophen [Tylenol] 650 - 975 mg PO Q4HR PRN #0 tablet 09/26/16 10/05/16 Bisacodyl [Dulcolax] 10 mg PO Q12H PRN #30 tablet 09/26/16 10/05/16 diphenhydrAMINE [Benadryl] 25 mg PO Q6H PRN #0 capsule 09/26/16 10/05/16 traMADol [Ultram] 50 mg PO Q4HR PRN #50 tablet 09/26/16 10/05/16 Pantoprazole [Protonix] 40 mg PO BID #60 tablet 10/06/16 Sucralfate [Carafate] 1 gm PO ACHS #120 tablet 10/06/16 - Allergies Allergies/Adverse Reactions: Allergies Allergy/AdvReac Type Severity Reaction Status Date / Time oxycodone AdvReac Unknown Verified 10/05/16 15:52 Exam - Vital Signs Reviewed Vital Signs: Yes Vital Signs: Vital Signs x48h Temp Pulse Resp BP Pulse Ox 10/05/16 18:28 37.1 C 89 18 92/67 93 - Physical Exam General Appearance: positive: No acute distress, Alert, Other (Patient is slightly drowsy after receiving IV dilaudid for his pain; although responds to questions appropriately.) Eyes Bilateral: positive: Normal inspection, PERRL, EOMI ENT: positive: ENT inspection nml, Pharynx nml Neck: positive: Nml inspection, No JVD, Trachea midline Respiratory: positive: Chest non-tender, No respiratory distress, Breath sounds nml Cardiovascular: positive: Regular rate & rhythm, Systolic murmur (3/5 murmur heard best at the right second intercostal space.) Peripheral Pulses: positive: 2+ (Pedal and radial bilateral.) Abdomen: positive: Non-tender, No organomegaly, Nml bowel sounds, No distention Rectal: positive: Non-tender, Stool - heme POS, Black stool (Dried stool on external rectum.) Back: positive: Nml inspection Skin: positive: Color nml, Warm, Dry Extremities: positive: Other (Right knee with narrow dressing over midline incision. No drainage on dressing. Mild redness surrounding incisional site. JAIME hose in place to lower extremity to the knee. Non-pitting edema surrounding the knee. 1+ edema to foot. 2+ pedal pulse; good sensation. Calf is non-tender.) Neurologic/Psychiatric: positive: Oriented x3, CN's nml (2-12), Motor nml, Sensation nml, Mood/affect nml Conclusion/Plan - Problem List (1) Acute blood loss anemia Conclusion/Plan: Acute normocytic anemia hgb 6.7 upon admission. Patient with episode of hematemesis and hematechezia x 1 at home. Hemocult positve on rectal exam. Hemodynamically stable in the ED (SBP 116, HR 90's) without changes in HR with position changes, denied lightheadedness upon sitting up. * Serial CBC every 6 hours. * Type and Screen; transfuse 2 units PRBC. * PT/INR. * 40 mg IV protonix twice daily. * Stop plavix. * General Surgery Consultation; Dr. Marcelino assessed the patient in the ED. Patient scheduled for EGD at 0900 tomorrow. * NPO for procedure in the morning. (2) Hematemesis with nausea Conclusion/Plan: One episode at home prior to arrival in the ED. Nausea resolved after emesis. No complaint of nausea upon assessment. Abdomen soft and non-tender, non- distended. * Serial CBC every 6 hours. * Zofran 4 mg intravenously every 6 hours as needed. * NPO * Monitor vital signs every 8 hours. (3) Hematochezia Conclusion/Plan: One episode at home prior to arrival in ED. Hemocult positive upon examination. Abdomen: BT normoactive, soft, and non-tender. * Serial CBC every 6 hours. * Vital signs every 8 hours. * Continue to monitor bowel movements during hospitalization. * NPO (4) Postoperative cellulitis of surgical wound Conclusion/Plan: Cellulitis s/p total right knee replacement 09/24/16. Patient started on Keflex and Bactrim in outpatient setting by Dr. Goodman (Orthopedics). * Ancef 1 gm IV every 6 hours to cover for suspected staph or strep infection. Hold PO abx while inpatient and NPO status. * Notify orthopedics of patient's admission 10/06/16 morning. * Monitor pain/swelling/redness to right knee. If progressing consider possibility of joint infection; assess with ultrasound. * Control post-op pain with 0.5 mg IV dilaudid q2h as needed while NPO. Qualifiers: Encounter type: subsequent encounter Qualified Code(s): T81.4XXD - Infection following a procedure, subsequent encounter (5) [id number] diabetes mellitus without complications Conclusion/Plan: Non-insulin dependent diabetes; patient manages with diet and metformin at home. * Hold metformin while inpatient d/t risk for lactic acidosis. * Blood sugar q6h while NPO. * Low dose sliding scale novolin insulin q6h while NPO. * Hgb A1c Qualifiers: Diabetes mellitus local company intermodal truck driver insulin use: without local company intermodal truck driver use Qualified Code(s): E11.9 - Type 2 diabetes mellitus without complications (6) Hypertension Conclusion/Plan: Stable hypertension controlled at home with PO medications. Patient's blood pressure is SBP 116 in ED, 98 upon arriving on medical unit. No indication for antihypertensive medications at this time. * Hold home medications while NPO. * Assess vital signs q8h and per blood transfusion routine. Qualifiers: Hypertension type: unspecified secondary hypertension Qualified Code(s): I15.9 - Secondary hypertension, unspecified; I15 - Secondary hypertension (7) Status post transcatheter aortic valve replacement (TAVR) using bioprosthesis Conclusion/Plan: Patient with history of severe aortic stenosis s/p TAVR in May 2016 at [facility] in [place] by Dr. Ordoñez. * Continue prescribed home medications when taking PO. * Consult with milk route supervisor if indicated. * May need to consider alternative anticoagulation for his biprosthesis valve. (9) Mechanical deep vein thrombosis (DVT) prophylaxis in place Conclusion/Plan: Patient with sequential compression devices and JAIME hose to right lower extremity (home). * Pharmacological DVT prophylaxis is contraindicated at this time d/t possible source of bleeding. * Plavix held. - Lab Results Lab results reviewed: No Fish Bones: 10/06/16 12:05 10/06/16 06:38 Other Lab Results: Laboratory Tests 10/05/16 10/05/16 17:55 17:55 WBC 15.5 H Hgb 6.7 L* Hct 21.2 L MCV 87.9 Plt Count 404 Sodium 132 L Potassium 4.6 Chloride 110 Carbon Dioxide 17 L Anion Gap 5.0 L BUN 21 H Creatinine 0.9 Glucose 142 H Calcium 7.1 L Issues/Core Measures - Anticipated LOS Anticipated Stay Length: Less than 2 midnights - Issues Hospital Issues and Management Plan: Have PT/OT continue treatment with the patient during hospitalization to prevent regression in right knee therapy. - DVT/VTE - Prophylaxis VTE/DVT Device ordered at admit?: Yes VTE/DVT Prophylaxis med ordered at admit?: No Not Ordered - Medical Reason: Contraindicated (Patient with possible GI bleed.)
[2016-10-05] MEDS: ceFAZolin 1 GM in SODIUM CHLORIDE 0.9% MINIBAG 100 ML IV SCH (19:39)
[2016-10-05] MEDS: SODIUM CHLORIDE 0.9% 1,000 ML IV SCH (19:40)
[2016-10-05] MEDS: SODIUM CHLORIDE FLUSH 0.9% 10 ML SYRINGE IVP SCH (19:40)
[2016-10-05 19:57] LABS: INR 1.3 (0.8-1.2); PT - PROTHROMBIN TIME 14.7 secs (9.9-12.6)
[2016-10-05 20:05] LABS: PARTIAL THROMBOPLASTIN TIME 21.9 secs (24.9-33.3)
[2016-10-05 20:17] LABS: PLATELET ESTIMATE, MANUAL INCREASED (>450,000) (NORMAL); PLATELET MORPHOLOGY 3+ GIANT PLATELETS (NORMAL)
[2016-10-06] MEDS: HYDROmorphone 1 MG/ML SYRINGE IVP PRN ×6 (00:01→22:53)
[2016-10-06] MEDS: ceFAZolin 1 GM in SODIUM CHLORIDE 0.9% MINIBAG 100 ML IV SCH ×5 (00:01→23:37)
[2016-10-06] MEDS: INSULIN REGULAR HUMAN 100 UNIT/1 ML 10 ML MDV SUBQ SCH ×2 (01:01→06:37)
[2016-10-06] MEDS: SODIUM CHLORIDE 0.9% 1,000 ML IV SCH ×3 (02:51→23:14)
[2016-10-06] MEDS: SODIUM CHLORIDE FLUSH 0.9% 10 ML SYRINGE IVP SCH ×3 (06:02→21:23)
[2016-10-06] MEDS ORDERED: PANTOPRAZOLE 40 MG VIAL IVP SCH (07:00)
[2016-10-06 07:26] LABS: BASOPHILS # (AUTO) 0.2 10^3/uL (0.0-0.1); BASOPHILS % (AUTO) 1.3 %; EOSINOPHILS % (AUTO) 0.1 %; HCT - HEMATOCRIT 27.3 % (42.0-52.0); HGB - HEMOGLOBIN 9.1 g/dL (14.0-18.0); LYMPHOCYTES # (AUTO) 1.3 10^3/uL (1.5-3.5); LYMPHOCYTES % (AUTO) 10.6 %; MEAN CORPUSCULAR HEMOGLOBIN 29.1 pg (27.0-31.0); MEAN CORPUSCULAR HGB CONC 33.5 g/dL (32.0-36.0); MEAN CORPUSCULAR VOLUME 86.8 fL (80.0-94.0); MEAN PLATELET VOLUME 7.4 fL (7.4-11.4); MONOCYTES # (AUTO) 1.3 10^3/uL (0.0-1.0); MONOCYTES % (AUTO) 10.7 %; NEUTROPHILS # (AUTO) 9.1 10^3/uL (1.5-6.6); NEUTROPHILS % (AUTO) 77.3 %; RED BLOOD COUNT 3.14 10^6/uL (4.70-6.10); RED CELL DISTRIBUTION WIDTH 17.7 % (12.0-15.0); UNCORRECTED WHITE BLOOD COUNT 11.8 x10^3/uL; WHITE BLOOD COUNT 11.8 x10^3/uL (4.8-10.8)
[2016-10-06 07:41] LABS: ALBUMIN/GLOBULIN RATIO 0.7 (1.0-2.2); CALCIUM 8.8 mg/dL (8.5-10.3)
[2016-10-06 08:04] LABS: HEMOGLOBIN A1C 0.53 g/dL
--- NOTE | 2016-10-06 08:14 | PROVIDER PROGRESS NOTE ---
Subjective - Prog Note Date Prog Note Date: 10/06/16 Prog Note Time: 08:13 - Subjective Pt reports feeling: Improved Subjective: He need IJ and antecubital yesterday evening to obtain adequate intravenous access. He received 2 units of PRBCs overnight without complications. This morning his Hgb 9.1. Patient is sitting up on the edge visiting with his . He reports feeling greatly improved - stronger and no longer fatigued. He is requesting to go home. He has not had any further nausea or emesis since the episode yesterday around 1400. He reports having a bowel movement this morning that was formed and normal colored; denied blood or dark discoloration. Discussed with the patient and his that Dr. Marcelino will be seeing him today for an EGD. Once this is completed we will have more answers regarding further treatment and follow-up. After further discussion with the patient and his he did not quit drinking > 10 years ago but drinks 1-2 "shots" of monarch vodka with his tea every night. Denies any drug use. Mild/faint redness surrounding dressing/incision to right knee. Patient believes overall that his pain and mobility have been improving (not worsening) since surgery. Consulted with with Dr. Goodman this morning who felt like the Cellulitis was resolved. Dressing to knee to be removed and silver dressing reapplied. Dr. Marcelino took the patient for EGD and found 2 non-bleeding ulcers near the conjunction of the esophagus and stomach. CBC obtained at 1200 and patient will be transfused with one more unit of PRBC. Started on a carb-controlled diet, changed blood sugar and insulin administration to [facility], and restarted home medications. Expect to discharge patient to home tomorrow. Objective - Vital Signs/Intake & Output Reviewed Vital Signs: Yes Vital Signs: Vital Signs x48h Temp Pulse Resp BP Pulse Ox 10/06/16 07:45 36.6 C 97 18 145/58 H 94 10/06/16 04:16 37.1 C 93 18 144/66 H 94 Intake & Output: Intake & Output 10/03/16 10/04/16 10/05/16 10/06/16 23:59 23:59 23:59 23:59 Intake Total 1248 Output Total 375 325 Balance -375 923 - Objective General Appearance: positive: No acute distress, Alert, Other (Patient sitting up at edge of bed, talkative and in good spirits.) Eyes Bilateral: positive: Normal inspection, PERRL, EOMI Respiratory: positive: Chest non-tender, No respiratory distress, Breath sounds nml Cardiovascular: positive: Regular rate & rhythm, Systolic murmur (3/5 murmur heard best at right second intercostal space.) Peripheral Pulses: 2+ Radial (R), 2+ Radial (L), 2+ Dorsalis pedis (R), 2+ Dorsalis pedis (L), 2+ Posterior tibialis (R), 2+ Posterior tibialis (L) Abdomen: positive: Non-tender, No organomegaly, Nml bowel sounds, No distention , Other Back: positive: Nml inspection Neurologic/Psychiatric: positive: Oriented x3, Motor nml, Sensation nml, Mood/ affect nml - Lab Results Fish Bones: 10/06/16 06:38 10/06/16 06:38 Other Labs: Lab Results x24hrs 10/06/16 10/06/16 10/05/16 Range/Units 06:38 06:38 19:35 WBC 11.8 H (4.8-10.8) x10^3/uL RBC 3.14 L (4.70-6.10) 10^6/uL Hgb 9.1 L (14.0-18.0) g/dL Hct 27.3 L (42.0-52.0) % MCV 86.8 (80.0-94.0) fL MCH 29.1 (27.0-31.0) pg MCHC 33.5 (32.0-36.0) g/dL RDW 17.7 H (12.0-15.0) % Plt Count 482 H (130-450) 10^3/uL MPV 7.4 (7.4-11.4) fL Neut # 9.1 H (1.5-6.6) 10^3/uL Lymph # 1.3 L (1.5-3.5) 10^3/uL Duval # 1.3 H (0.0-1.0) 10^3/uL Eos # 0.0 (0.0-0.7) 10^3/uL Baso # 0.2 H (0.0-0.1) 10^3/uL Absolute Nucleated RBC 0.01 x10^3/uL Nucleated RBCs 0.0 /100WBC Manual Slide Review Platelet Estimate (NORMAL) Platelet Morphology (NORMAL) RBC Morph Micro Appear (NORMAL) PT (9.9-12.6) secs INR (0.8-1.2) APTT (24.9-33.3) secs Sodium 134 L (135-145) mmol/L Potassium 5.0 (3.5-5.0) mmol/L Chloride 106 (101-111) mmol/L Carbon Dioxide 19 L (21-32) mmol/L Anion Gap 9.0 (6-13) BUN 35 H (6-20) mg/dL Creatinine 1.0 (0.6-1.2) mg/dL Estimated GFR (MDRD) 73 L (>89) Glucose 173 H (70-100) mg/dL Calcium 8.8 (8.5-10.3) mg/dL Total Bilirubin 1.0 (0.2-1.0) mg/dL AST 25 (10-42) IU/L ALT 16 (10-60) IU/L Alkaline Phosphatase 70 (42-121) IU/L Total Protein 7.0 (6.7-8.2) g/dL Albumin 2.9 L (3.2-5.5) g/dL Globulin 4.1 (2.1-4.2) g/dL Albumin/Globulin Ratio 0.7 L (1.0-2.2) Lipase (22-51) U/L Blood Type A NEGATIVE Blood Type Recheck Antibody Screen NEGATIVE Crossmatch IS Only See Detail 10/05/16 10/05/16 10/05/16 Range/Units 19:35 17:55 17:55 WBC (4.8-10.8) x10^3/uL RBC (4.70-6.10) 10^6/uL Hgb (14.0-18.0) g/dL Hct (42.0-52.0) % MCV (80.0-94.0) fL MCH (27.0-31.0) pg MCHC (32.0-36.0) g/dL RDW (12.0-15.0) % Plt Count (130-450) 10^3/uL MPV (7.4-11.4) fL Neut # (1.5-6.6) 10^3/uL Lymph # (1.5-3.5) 10^3/uL Duval # (0.0-1.0) 10^3/uL Eos # (0.0-0.7) 10^3/uL Baso # (0.0-0.1) 10^3/uL Absolute Nucleated RBC x10^3/uL Nucleated RBCs /100WBC Manual Slide Review Platelet Estimate (NORMAL) Platelet Morphology (NORMAL) RBC Morph Micro Appear (NORMAL) PT 14.7 H (9.9-12.6) secs INR 1.3 H (0.8-1.2) APTT 21.9 L (24.9-33.3) secs Sodium 132 L (135-145) mmol/L Potassium 4.6 (3.5-5.0) mmol/L Chloride 110 (101-111) mmol/L Carbon Dioxide 17 L (21-32) mmol/L Anion Gap 5.0 L (6-13) BUN 21 H (6-20) mg/dL Creatinine 0.9 (0.6-1.2) mg/dL Estimated GFR (MDRD) 83 L (>89) Glucose 142 H (70-100) mg/dL Calcium 7.1 L (8.5-10.3) mg/dL Total Bilirubin 0.5 (0.2-1.0) mg/dL AST 25 (10-42) IU/L ALT 13 (10-60) IU/L Alkaline Phosphatase 60 (42-121) IU/L Total Protein 5.4 L (6.7-8.2) g/dL Albumin 2.1 L (3.2-5.5) g/dL Globulin 3.3 (2.1-4.2) g/dL Albumin/Globulin Ratio 0.6 L (1.0-2.2) Lipase 23 (22-51) U/L Blood Type Blood Type Recheck A NEGATIVE Antibody Screen Crossmatch IS Only 10/05/16 Range/Units 17:55 WBC 15.5 H (4.8-10.8) x10^3/uL RBC 2.41 L (4.70-6.10) 10^6/uL Hgb 6.7 L* (14.0-18.0) g/dL Hct 21.2 L (42.0-52.0) % MCV 87.9 (80.0-94.0) fL MCH 27.8 (27.0-31.0) pg MCHC 31.6 L (32.0-36.0) g/dL RDW 18.1 H (12.0-15.0) % Plt Count 404 (130-450) 10^3/uL MPV 8.6 (7.4-11.4) fL Neut # 13.2 H (1.5-6.6) 10^3/uL Lymph # 0.9 L (1.5-3.5) 10^3/uL Duval # 1.3 H (0.0-1.0) 10^3/uL Eos # 0.0 (0.0-0.7) 10^3/uL Baso # 0.1 (0.0-0.1) 10^3/uL Absolute Nucleated RBC 0.00 x10^3/uL Nucleated RBCs 0.0 /100WBC Manual Slide Review Indicated Platelet Estimate INCREASED (>450,000) (NORMAL) Platelet Morphology 3+ GIANT PLATELETS (NORMAL) RBC Morph Micro Appear 1+ HYPOCHROMASIA (NORMAL) PT (9.9-12.6) secs INR (0.8-1.2) APTT (24.9-33.3) secs Sodium (135-145) mmol/L Potassium (3.5-5.0) mmol/L Chloride (101-111) mmol/L Carbon Dioxide (21-32) mmol/L Anion Gap (6-13) BUN (6-20) mg/dL Creatinine (0.6-1.2) mg/dL Estimated GFR (MDRD) (>89) Glucose (70-100) mg/dL Calcium (8.5-10.3) mg/dL Total Bilirubin (0.2-1.0) mg/dL AST (10-42) IU/L ALT (10-60) IU/L Alkaline Phosphatase (42-121) IU/L Total Protein (6.7-8.2) g/dL Albumin (3.2-5.5) g/dL Globulin (2.1-4.2) g/dL Albumin/Globulin Ratio (1.0-2.2) Lipase (22-51) U/L Blood Type Blood Type Recheck Antibody Screen Crossmatch IS Only Assessment/Plan - Problem List (1) Anemia Impression: Patient received 2 units of PRBC overnight and his Hgb improved from 6.7 to 9.1. Qualifiers: Anemia type: unspecified type Qualified Code(s): D64.9 - Anemia, unspecified (2) Cellulitis Qualifiers: Site of cellulitis: extremity Site of cellulitis of extremity: lower extremity Laterality: right Qualified Code(s): L03.115 - Cellulitis of right lower limb (3) Diabetes mellitus Qualifiers: Diabetes mellitus type: type 2 Diabetes mellitus complication status: with hyperglycemia Diabetes mellitus fdc insulin use: without circulation worker use Qualified Code(s): E11.65 - Type 2 diabetes mellitus with hyperglycemia (4) Hypertension Qualifiers: Hypertension type: unspecified secondary hypertension Qualified Code(s): I15.9 - Secondary hypertension, unspecified; I15 - Secondary hypertension
[2016-10-06] MEDS: POLYETHYLENE GLYCOL 3350 17 GM PACKET PO SCH (08:33)
[2016-10-06] MEDS ORDERED: SODIUM CHLORIDE 0.9% 1,000 ML IV ONE ×2 (10:48)
[2016-10-06] MEDS ORDERED: BENZOCAINE/TETRACAINE/BUTAMBEN SPRAY 56 GM TOP ONE (10:48)
[2016-10-06] MEDS ORDERED: PROPOFOL 200 MG/20 ML VIAL IVP ONE (11:00)
[2016-10-06] MEDS ORDERED: fentaNYL 100 MCG/2 ML VIAL IVP ONE (11:00)
[2016-10-06] MEDS ORDERED: MIDAZOLAM 2 MG/2 ML VIAL IVP ONE (11:00)
[2016-10-06] MEDS ORDERED: LIDOCAINE-PF 2% 10 ML AMP SUBQ ONE (11:00)
[2016-10-06 12:16] LABS: HCT - HEMATOCRIT 26.8 % (42.0-52.0); HGB - HEMOGLOBIN 9.2 g/dL (14.0-18.0)
--- NOTE | 2016-10-06 12:44 | PROVIDER PROGRESS NOTE ---
Subjective - Prog Note Date Prog Note Date: 10/06/16 Prog Note Time: 11:30 - Subjective Pt reports feeling: Improved Subjective: He need EJ and antecubital yesterday evening to obtain adequate intravenous access. He received 2 units of PRBCs overnight without complications. This morning his Hgb 9.1. Patient is sitting up on the edge visiting with his . He reports feeling greatly improved - stronger and no longer fatigued. He is requesting to go home. He has not had any further nausea or emesis since the episode yesterday around 1400. He reports having a bowel movement this morning that was formed and normal colored; denied blood or dark discoloration. Discussed with the patient and his that Dr. Marcelino will be seeing him today for an EGD. Once this is completed we will have more answers regarding further treatment and follow-up. After further discussion with the patient and his he did not quit drinking > 10 years ago but drinks 1-2 "shots" of monarch vodka with his tea every night. Denies any drug use. No redness around dressing/incision to right knee, incision is well approximated with some bruising. 1+ edema surrounding the knee; physical therapy provided the patient with exercises today. Patient believes that his pain and mobility have been improving (not worsening) since surgery. Consulted with with Dr. Goodman this morning who felt like the Cellulitis was resolved. Dressing to knee to removed and silver dressing reapplied. Dr. Marcelino took the patient for EGD and found 2 non-bleeding ulcers near the conjunction of the esophagus and stomach. CBC obtained at 1200 and patient will be transfused with one more unit of PRBC. Started on a carb-controlled diet, changed blood sugar and insulin administration to [facility], and restarted home medications. Expect to discharge patient to home tomorrow. Current Medications - Current Medications Current Medications: Active Medications Amlodipine Besylate (Norvasc) 10 mg PO DAILY [facility] Last Admin: 10/06/16 13:29 Dose: 10 mg Atorvastatin Calcium (Lipitor) 40 mg PO QPM [facility] Clopidogrel Bisulfate (Plavix) 75 mg PO DAILY [facility] Last Admin: 10/06/16 13:29 Dose: 75 mg Cyanocobalamin (Vitamin B-12) 1,000 mcg PO BID [facility] Last Admin: 10/06/16 13:29 Dose: 1,000 mcg Ferrous Sulfate (Feosol) 325 mg PO BID [facility] Last Admin: 10/06/16 13:29 Dose: 325 mg Sodium Chloride (Normal Saline 0.9%) 1,000 mls @ 100 mls/hr IV .Q10H [facility] Last Admin: 10/06/16 02:51 Dose: 100 mls/hr Cefazolin Sodium 1 gm/ Sodium (Chloride) 100 mls @ 200 mls/hr IV Q6H [facility] Last Admin: 10/06/16 13:28 Dose: 200 mls/hr Insulin Human Regular (Novolin R) 1 - 5 unit SUBQ ACHS [facility] PRN Reason: Protocol Levothyroxine Sodium (Synthroid) 25 mcg PO QDAC [facility] Last Admin: 10/06/16 13:29 Dose: 25 mcg Lisinopril (Zestril) 40 mg PO DAILY [facility] Last Admin: 10/06/16 13:29 Dose: 40 mg Lorazepam (Ativan Inj) 0.5 mg IVP Q2HR PRN PRN Reason: Anxiety Last Admin: 10/06/16 08:01 Dose: 0.5 mg Lorazepam (Ativan) 0.5 mg PO QPM [facility] Last Admin: 10/06/16 13:30 Dose: Not Given Ondansetron HCl (Zofran Inj) 4 mg IVP Q6HR PRN PRN Reason: Nausea / Vomiting Pantoprazole Sodium (Protonix) 40 mg PO BID [facility] Polyethylene Glycol (Miralax) 17 gm PO DAILY [facility] Last Admin: 10/06/16 08:33 Dose: Not Given Sertraline HCl (Zoloft) 50 mg PO DAILY [facility] Last Admin: 10/06/16 13:29 Dose: 50 mg Sodium Chloride (Normal Saline Flush 0.9%) 10 ml IVP PRN PRN PRN Reason: NEEDED PER PROVIDER ORDERS Sodium Chloride (Normal Saline Flush 0.9%) 10 ml IVP Q8HR [facility] Last Admin: 10/06/16 06:02 Dose: Not Given Sucralfate (Carafate) 1 gm PO 0700,1100,1600,2200 [facility] Tamsulosin HCl (Flomax) 0.4 mg PO DAILY [facility] Last Admin: 10/06/16 13:29 Dose: 0.4 mg Tramadol HCl (Ultram) 50 mg PO Q4HR PRN PRN Reason: PAIN Last Admin: 10/06/16 13:29 Dose: 50 mg Rosuvastatin [Crestor] 10 mg PO DAILY 01/07/13 Sertraline [Zoloft] 50 mg PO DAILY 01/07/13 Methotrexate 20 mg PO Q7D 04/08/16 Lorazepam [Ativan] 0.5 mg PO DAILY PM 04/12/16 Clopidogrel [Plavix] 75 mg PO DAILY 09/12/16 Cyanocobalamin (Vitamin B-12) [Vitamin B-12 (1000 mcg sublingual)] 1,000 mcg SL BID 09/12/16 Ferrous Sulfate 325 mg PO BID 09/12/16 Levothyroxine [Synthroid] 25 mcg PO QDAC 09/12/16 Cholecalciferol (Vitamin D3) [Vitamin D3] 2,000 unit PO DAILY 09/24/16 Lisinopril [Zestril] 40 mg PO DAILY 09/24/16 Potassium Chloride 10 meq PO DAILY 09/24/16 Tamsulosin [Flomax] 0.4 mg PO DAILY 09/24/16 amLODIPine [Norvasc] 10 mg PO DAILY 09/24/16 metFORMIN [Glucophage] 500 mg PO BIDWM 09/24/16 Objective - Vital Signs/Intake & Output Reviewed Vital Signs: Yes Vital Signs: Vital Signs x48h Temp Pulse Resp BP Pulse Ox 10/06/16 11:25 96 10/06/16 11:20 97 10/06/16 11:15 94 10/06/16 11:10 94 10/06/16 11:05 97 10/06/16 07:45 36.6 C 97 18 145/58 H 94 Intake & Output: Intake & Output 10/03/16 10/04/16 10/05/16 10/06/16 23:59 23:59 23:59 23:59 Intake Total 1248 Output Total 375 325 Balance -375 923 - Objective General Appearance: positive: No acute distress, Alert, Other (Patient is sitting up on the edge of the bed, talkative and in good spirits.) Eyes Bilateral: positive: Normal inspection, PERRL, EOMI ENT: positive: ENT inspection nml, Pharynx nml Neck: positive: Nml inspection, No JVD, Trachea midline Respiratory: positive: Chest non-tender, No respiratory distress, Breath sounds nml Cardiovascular: positive: Regular rate & rhythm, Systolic murmur (3/5, heard best at second right intercostal space.) Peripheral Pulses: 2+ Radial (R), 2+ Radial (L), 2+ Dorsalis pedis (R), 2+ Dorsalis pedis (L), 2+ Posterior tibialis (R), 2+ Posterior tibialis (L) Abdomen: positive: Non-tender, No organomegaly, Nml bowel sounds, No distention Back: positive: Nml inspection Skin: positive: Color nml, Warm, Dry Extremities: positive: Other (Midline incision to right knee from total knee replacement 09/24/16. 1+ pitting edema surrounding the knee. Dressing removed, no redness surrounding the incision, mild bruising along the proximal region of the incision. Incision is well approximated without drainage. Good CMS to lower extremity. Limited range of motion, but working on exercises provided by physical therapy.) Neurologic/Psychiatric: positive: Oriented x3, Motor nml, Sensation nml, Mood/ affect nml - Lab Results Fish Bones: 10/06/16 12:05 10/06/16 06:38 Other Labs: Lab Results x24hrs 10/06/16 10/06/16 10/06/16 Range/Units 12:05 06:38 06:38 WBC (4.8-10.8) x10^3/uL RBC (4.70-6.10) 10^6/uL Hgb 9.2 L (14.0-18.0) g/dL Hct 26.8 L (42.0-52.0) % MCV (80.0-94.0) fL MCH (27.0-31.0) pg MCHC (32.0-36.0) g/dL RDW (12.0-15.0) % Plt Count (130-450) 10^3/uL MPV (7.4-11.4) fL Neut # (1.5-6.6) 10^3/uL Lymph # (1.5-3.5) 10^3/uL Colbert # (0.0-1.0) 10^3/uL Eos # (0.0-0.7) 10^3/uL Baso # (0.0-0.1) 10^3/uL Absolute Nucleated RBC x10^3/uL Nucleated RBCs /100WBC Manual Slide Review Platelet Estimate (NORMAL) Platelet Morphology (NORMAL) RBC Morph Micro Appear (NORMAL) PT (9.9-12.6) secs INR (0.8-1.2) APTT (24.9-33.3) secs Sodium 134 L (135-145) mmol/L Potassium 5.0 (3.5-5.0) mmol/L Chloride 106 (101-111) mmol/L Carbon Dioxide 19 L (21-32) mmol/L Anion Gap 9.0 (6-13) BUN 35 H (6-20) mg/dL Creatinine 1.0 (0.6-1.2) mg/dL Estimated GFR (MDRD) 73 L (>89) Glucose 173 H (70-100) mg/dL Glycated Hemoglobin 7.2 H (4.6-6.2) % Estim Average Glucose 160 H (70-100) Calcium 8.8 (8.5-10.3) mg/dL Total Bilirubin 1.0 (0.2-1.0) mg/dL AST 25 (10-42) IU/L ALT 16 (10-60) IU/L Alkaline Phosphatase 70 (42-121) IU/L Total Protein 7.0 (6.7-8.2) g/dL Albumin 2.9 L (3.2-5.5) g/dL Globulin 4.1 (2.1-4.2) g/dL Albumin/Globulin Ratio 0.7 L (1.0-2.2) Lipase (22-51) U/L Blood Type Blood Type Recheck Antibody Screen Crossmatch IS Only 10/06/16 10/05/16 10/05/16 Range/Units 06:38 19:35 19:35 WBC 11.8 H (4.8-10.8) x10^3/uL RBC 3.14 L (4.70-6.10) 10^6/uL Hgb 9.1 L (14.0-18.0) g/dL Hct 27.3 L (42.0-52.0) % MCV 86.8 (80.0-94.0) fL MCH 29.1 (27.0-31.0) pg MCHC 33.5 (32.0-36.0) g/dL RDW 17.7 H (12.0-15.0) % Plt Count 482 H (130-450) 10^3/uL MPV 7.4 (7.4-11.4) fL Neut # 9.1 H (1.5-6.6) 10^3/uL Lymph # 1.3 L (1.5-3.5) 10^3/uL Colbert # 1.3 H (0.0-1.0) 10^3/uL Eos # 0.0 (0.0-0.7) 10^3/uL Baso # 0.2 H (0.0-0.1) 10^3/uL Absolute Nucleated RBC 0.01 x10^3/uL Nucleated RBCs 0.0 /100WBC Manual Slide Review Platelet Estimate (NORMAL) Platelet Morphology (NORMAL) RBC Morph Micro Appear (NORMAL) PT 14.7 H (9.9-12.6) secs INR 1.3 H (0.8-1.2) APTT 21.9 L (24.9-33.3) secs Sodium (135-145) mmol/L Potassium (3.5-5.0) mmol/L Chloride (101-111) mmol/L Carbon Dioxide (21-32) mmol/L Anion Gap (6-13) BUN (6-20) mg/dL Creatinine (0.6-1.2) mg/dL Estimated GFR (MDRD) (>89) Glucose (70-100) mg/dL Glycated Hemoglobin (4.6-6.2) % Estim Average Glucose (70-100) Calcium (8.5-10.3) mg/dL Total Bilirubin (0.2-1.0) mg/dL AST (10-42) IU/L ALT (10-60) IU/L Alkaline Phosphatase (42-121) IU/L Total Protein (6.7-8.2) g/dL Albumin (3.2-5.5) g/dL Globulin (2.1-4.2) g/dL Albumin/Globulin Ratio (1.0-2.2) Lipase (22-51) U/L Blood Type A NEGATIVE Blood Type Recheck Antibody Screen NEGATIVE Crossmatch IS Only See Detail 10/05/16 10/05/16 10/05/16 Range/Units 17:55 17:55 17:55 WBC 15.5 H (4.8-10.8) x10^3/uL RBC 2.41 L (4.70-6.10) 10^6/uL Hgb 6.7 L* (14.0-18.0) g/dL Hct 21.2 L (42.0-52.0) % MCV 87.9 (80.0-94.0) fL MCH 27.8 (27.0-31.0) pg MCHC 31.6 L (32.0-36.0) g/dL RDW 18.1 H (12.0-15.0) % Plt Count 404 (130-450) 10^3/uL MPV 8.6 (7.4-11.4) fL Neut # 13.2 H (1.5-6.6) 10^3/uL Lymph # 0.9 L (1.5-3.5) 10^3/uL Colbert # 1.3 H (0.0-1.0) 10^3/uL Eos # 0.0 (0.0-0.7) 10^3/uL Baso # 0.1 (0.0-0.1) 10^3/uL Absolute Nucleated RBC 0.00 x10^3/uL Nucleated RBCs 0.0 /100WBC Manual Slide Review Indicated Platelet Estimate INCREASED (>450,000) (NORMAL) Platelet Morphology 3+ GIANT PLATELETS (NORMAL) RBC Morph Micro Appear 1+ HYPOCHROMASIA (NORMAL) PT (9.9-12.6) secs INR (0.8-1.2) APTT (24.9-33.3) secs Sodium 132 L (135-145) mmol/L Potassium 4.6 (3.5-5.0) mmol/L Chloride 110 (101-111) mmol/L Carbon Dioxide 17 L (21-32) mmol/L Anion Gap 5.0 L (6-13) BUN 21 H (6-20) mg/dL Creatinine 0.9 (0.6-1.2) mg/dL Estimated GFR (MDRD) 83 L (>89) Glucose 142 H (70-100) mg/dL Glycated Hemoglobin (4.6-6.2) % Estim Average Glucose (70-100) Calcium 7.1 L (8.5-10.3) mg/dL Total Bilirubin 0.5 (0.2-1.0) mg/dL AST 25 (10-42) IU/L ALT 13 (10-60) IU/L Alkaline Phosphatase 60 (42-121) IU/L Total Protein 5.4 L (6.7-8.2) g/dL Albumin 2.1 L (3.2-5.5) g/dL Globulin 3.3 (2.1-4.2) g/dL Albumin/Globulin Ratio 0.6 L (1.0-2.2) Lipase 23 (22-51) U/L Blood Type Blood Type Recheck A NEGATIVE Antibody Screen Crossmatch IS Only Assessment/Plan - Problem List (1) Acute blood loss anemia Impression: Patient transfused with 2 units PRBC overnight and hgb improved from 6.7 to 9.1. EGD completed this morning; patient has 2 non-actively bleeding ulcers proximal to the gastroesophageal sphincter. Patient remained hemodynamically stable overnight and this morning. Patient reports feeling improved with no further episodes of hematemesis or hematochezia. * CBC at 1200 * Transfuse 1 unit of PRBC today. * 40 mg PO protonix twice daily. * 1,000 mg carafate PO ACHS. * Biopsy obtained in EGD. * Follow up with Dr. Marcelino in 6 weeks. (2) Hematochezia Impression: No further episodes of hematochezia since yesterday prior to admission. Patient reported a normal formed bowel movement this morning, denied blood or darkened stool. * Continue to monitor overnight. * Transfuse 1 unit PRBC. * Recheck CBC in AM. * 40 mg PO protonix twice daily. * 1,000 mg PO carafate ACHS. (3) Hematemesis with nausea Impression: No further episodes since yesterday at 1400. * Continue to monitor overnight. * Transfuse 1 unit PRBC today. * Recheck CBC in AM. * 40 mg PO protonix twice daily. * 1,000 mg PO carafate ACHS. (4) Postoperative cellulitis of surgical wound Impression: Cellulitis s/p total right knee replacement 09/24/16. Patient started on Keflex and Bactrim in outpatient setting by Dr. Goodman (Orthopedics). * Ancef 1 gm IV every 6 hours to cover for suspected staph or strep infection. * Dr Goodman notified and updated on the patient's admission. * Monitor pain/swelling/redness to right knee. If progressing consider possibility of joint infection: no redness noted today, dressing removed and 1+ edema surrounding the knee, mild ecchymosis at proximal end of incision, well approximated. Dr. Goodman saw the patient and reported that the patient does not need to continue Keflex and Bactrim upon discharge. * Post-op pain control changed to home regimen: 50 mg PO tramadol q4h prn pain. * Dilaudid discontinued. * Physical therapy to assess and treat patient. Qualifiers: Encounter type: subsequent encounter Qualified Code(s): T81.4XXD - Infection following a procedure, subsequent encounter (5) Evu-[id number] diabetes mellitus without complications Impression: Patient's diabetes controlled with diet and metformin at home. His hgb A1c was 7.2 this morning. * Hold metformin during hospitalization. * Advanced diet to carb-controlled level IV. * Blood sugar checks ACHS. * Low-dose sliding scale novolog insulin ACHS. Qualifiers: Diabetes mellitus residential insulin use: without termite control representative use Qualified Code(s): E11.9 - Type 2 diabetes mellitus without complications (6) Hypertension Impression: Chronic hypertension controlled by PO medications at home; systolic blood pressure in the 140's throughout the night. * Restart patient's home medications since his diet has advanced from NPO. * Monitor vital signs every 8 hours. Qualifiers: Hypertension type: unspecified secondary hypertension Qualified Code(s): I15.9 - Secondary hypertension, unspecified; I15 - Secondary hypertension (7) Status post transcatheter aortic valve replacement (TAVR) using bioprosthesis Impression: Patient with history of severe aortic stenosis s/p TAVR in May 2016 at [facility] in [place] by Dr. Ordoñez. * Patient restarted on plavix after EGD for bioprosthesis valve. * Consult with infant lead teacher if indicated. (9) Mechanical deep vein thrombosis (DVT) prophylaxis in place Impression: Patient with sequential compression devices and JAIME hose to right lower extremity (home). * Pharmacological DVT prophylaxis is contraindicated at this time d/t recent bleeding ulcer. * Plavix restarted.
[2016-10-06] MEDS ORDERED: LORazepam 0.5 MG TABLET PO SCH ×2 (12:50→14:24)
--- NOTE | 2016-10-06 13:10 | Discharge Plan ---
Discharge Plan Disposition: Home, Self Care Condition: Good Prescriptions: Sucralfate [Carafate] 1 gm PO ACHS #120 tablet Pantoprazole [Protonix] 40 mg PO BID #60 tablet Diet: Diabetic Activity Restrictions: Additional Comments (Continue with physical therapy.) Shower Restrictions: No Driving Restrictions: No (No driving while on pain medication.) Assistance Devices: Walker Weight Bearing: Full Weight (Right knee.) Additional Instructions or Follow Up instructions: You were admitted for anemia (low blood level) due to esophageal ulcers. They are no longer bleeding and your blood count has been replaced with the blood transfusions. To help these ulcers heal you need to: 1. Take prescribed medications for 1 month - Pantoprazole 40 mg orally twice daily. - Carafate 1,000 mg orally four times daily: with meals and before bed. 2. No alcohol consumption. 3. No NSAIDS: ibuprofen, aspirin, aleve, motrin, excedrin You need to follow-up with Dr. Marcelino, General surgeon in 6 weeks for follow- up. Follow-up with your primary care provider within the next 2 weeks. Your orthopedic surgeon, Dr. Goodman saw you while you were hospitalized. You do not need to go to your previously scheduled follow-up appointment for the upcoming week but keep whatever appointment he has recommended. Upon evaluation the cellulitis (redness around incision) has resolved and you no longer need to take your oral antibiotics; Bactrim and Cephalexin. You received IV antibiotics while you were hospitalized. -Continue with physical therapy as ordered by Dr. Goodman for your Right total knee repair. No Smoking: If you smoke, Please STOP! Call for help. Follow-up with: YESI MARCELINO MD [Provider Admit Priv/Credential] - ORESTES HOOVER [Physician No Access] -
[2016-10-06] MEDS: SERTRALINE 50 MG TABLET PO SCH (13:29)
[2016-10-06] MEDS: LEVOTHYROXINE 25 MCG TABLET PO SCH (13:29)
[2016-10-06] MEDS: LISINOPRIL 20 MG TABLET PO SCH (13:29)
[2016-10-06] MEDS: TAMSULOSIN 0.4 MG CAPSULE PO SCH (13:29)
[2016-10-06] MEDS: CYANOCOBALAMIN 500 MCG TABLET PO SCH ×2 (13:29→21:47)
[2016-10-06] MEDS: CLOPIDOGREL 75 MG TABLET PO SCH (13:29)
[2016-10-06] MEDS: FERROUS SULFATE 325 MG TABLET PO SCH ×2 (13:29→21:48)
[2016-10-06] MEDS: traMADol 50 MG TABLET PO PRN ×3 (13:29→23:43)
[2016-10-06] MEDS: amLODIPine 5 MG TABLET PO SCH (13:29)
[2016-10-06 14:48] LABS: BILIRUBIN,URINE NEGATIVE (NEGATIVE)
[2016-10-06 14:49] LABS: UA CHARGE (STRIP ONLY) YES; UR CULTURE IF IND NOT INDICATED
[2016-10-06] MEDS ORDERED: INSULIN REGULAR HUMAN 100 UNIT/1 ML 10 ML MDV SUBQ SCH (16:00)
--- NOTE | 2016-10-06 18:02 | CONSULTATION NOTE ---
DATE OF CONSULTATION: 10/05/2016 00:00:00 REQUESTING PROVIDER: Dr. Tracy. REASON FOR CONSULTATION: GI bleed. HISTORY OF PRESENT ILLNESS: This is a 71-year-old very pleasant, but unfortunate , gentleman who presented to the emergency department today with one episode of hematemesis and dark stools. The patient underwent a TAVR procedure in April of this year and has since been on 75 mg of Plavix daily. Last week he underwent bilateral knee replacements and subsequently developed a cellulitis and was placed on antibiotics. Yesterday he began complaining of abdominal pain and has subsequently had an episode of coffee ground emesis and tarry stools. Most of the history if provided from the patient's . She states that he did have one episode of peptic ulcer disease many years ago and was treated for it with medications. He has not taken those medications since because he has not had any recurrence of symptoms. He denies any symptoms of GERD. He denies any epigastric or back pain. He is not taking any NSAIDS. He is not an alcoholic and only drinks rarely. PAST MEDICAL HISTORY: Hypertension, hypercholesterolemia, murmur, valve disorder which is severe aortic stenosis, status post TAVR, COPD, type 2 diabetes, hypothyroidism, history of peptic ulcer disease, BPH, depression, rheumatoid arthritis. PAST SURGICAL HISTORY: Appendectomy, colonoscopy approximately 10 years ago, bilateral knee replacement, carpal tunnel surgery, spine surgery and ORIF of the right ankle, as well as TAVR procedure. SOCIAL HISTORY: The patient is , living with his . HOME MEDICATIONS: 1. Crestor. 2. Zoloft. 3. Methotrexate. 4. Ativan. 5. Plavix. 6. Vitamin B12. 7. Ferrous sulfate. 8. Levothyroxine. 9. Vitamin D3. 10. Lisinopril. 11. Potassium. 12. Flomax. 13. Amlodipine. 14. Metformin. 15. Tylenol. 16. Bisacodyl. 17. Benadryl. 18. Tramadol. ALLERGIC TO MEDICATIONS: OXYCODONE. PHYSICAL EXAMINATION: VITAL SIGNS: Temperature 36.6, blood pressure 145/58, heart rate 97, respiratory rate 18. O2 saturation is 94% on room air. GENERAL: The patient is awake, alert, and oriented x3. He is in no acute distress. He is obese with central obesity. CARDIOVASCULAR: Regular rate and rhythm. CHEST: Clear to auscultation bilaterally with no rhonchi or wheezing. ABDOMEN: Soft, nondistended and nontender to palpation. There are no palpable masses. EXTREMITIES: Are well perfused and Nonedematous. The patient is noted to be slightly pale. LAB VALUES: Upon admission: White count is 15.5, hemoglobin 6.7, hematocrit 21.2 , platelets 404. PT is 14.7, INR 13, PTT is 21.9, sodium 132, potassium 4.6, chloride 110, bicarb 17, BUN 21, creatinine 0.9, calcium 7.1. ASSESSMENT: This is a 71-year-old male with an upper GI bleed. PLAN: The patient will be transfused appropriately and will subsequently undergo an esophagogastroduodenoscopy as the most likely source of his bleed is upper GI in nature, likely related to peptic ulcer disease. He will be started on BID PPI and QID carafate. The procedure was explained to the patient and his in detail including potential risks involved including, but not limited to bleeding and perforation. They understand all over the above and agree to proceed. JOB #: [id number] EXT JOB #:[id number] [place]
[2016-10-06] MEDS: INSULIN ASPART 300 UNIT/3 ML PEN SUBQ SCH ×2 (18:24→21:48)
[2016-10-06] MEDS: SUCRALFATE 1 GM/10 ML UDC PO SCH ×2 (20:47→21:48)
[2016-10-06] MEDS ORDERED: ATORVASTATIN 40 MG TABLET PO SCH (21:00)
[2016-10-06] MEDS: PANTOPRAZOLE 40 MG TABLET PO SCH (21:47)
[2016-10-07] MEDS: SODIUM CHLORIDE FLUSH 0.9% 10 ML SYRINGE IVP PRN ×3 (01:19→06:39)
[2016-10-07] MEDS: HYDROmorphone 1 MG/ML SYRINGE IVP PRN ×3 (01:19→06:38)
[2016-10-07] MEDS: traMADol 50 MG TABLET PO PRN (04:07)
[2016-10-07] MEDS: SODIUM CHLORIDE 0.9% 1,000 ML IV SCH (04:16)
[2016-10-07] MEDS: ceFAZolin 1 GM in SODIUM CHLORIDE 0.9% MINIBAG 100 ML IV SCH (05:32)
[2016-10-07] MEDS: SODIUM CHLORIDE FLUSH 0.9% 10 ML SYRINGE IVP SCH (06:26)
[2016-10-07] MEDS: SUCRALFATE 1 GM/10 ML UDC PO SCH ×3 (06:39→11:09)
[2016-10-07] MEDS: LEVOTHYROXINE 25 MCG TABLET PO SCH (06:39)
[2016-10-07 09:33] LABS: HCT - HEMATOCRIT 28.5 % (42.0-52.0); HGB - HEMOGLOBIN 9.3 g/dL (14.0-18.0)
[2016-10-07] MEDS: INSULIN ASPART 300 UNIT/3 ML PEN SUBQ SCH (10:25)
[2016-10-07] MEDS: TAMSULOSIN 0.4 MG CAPSULE PO SCH (10:34)
[2016-10-07] MEDS: CLOPIDOGREL 75 MG TABLET PO SCH (10:34)
[2016-10-07] MEDS: SERTRALINE 50 MG TABLET PO SCH (10:35)
[2016-10-07] MEDS: PANTOPRAZOLE 40 MG TABLET PO SCH (10:36)
[2016-10-07] MEDS: FERROUS SULFATE 325 MG TABLET PO SCH (10:37)
[2016-10-07] MEDS: LISINOPRIL 20 MG TABLET PO SCH (10:38)
[2016-10-07] MEDS: amLODIPine 5 MG TABLET PO SCH (10:38)
[2016-10-07] MEDS: POLYETHYLENE GLYCOL 3350 17 GM PACKET PO SCH (10:42)
[2016-10-07] MEDS: CYANOCOBALAMIN 500 MCG TABLET PO SCH (11:08)
[2016-10-07 11:36] VITALS: BP 149/57
--- NOTE | 2016-10-07 13:41 | DISCHARGE SUMMARY ---
"Discharge Summary Admit Date: 10/06/16 Discharge Date: 10/07/16 Discharging Provider: Dr. Tracy Primary Care Provider: Dr. Maldonado Code Status: Attempt Resuscitation Condition at Discharge: Good Discharge Disposition: 01 Home, Self Care Discharge Facility Name: [facility] - DIAGNOSES Discharge Diagnoses with Status of Each Condition: Gastrointestinal Bleed with acute blood loss anemia * Resolved: patient received 3 units PRBC during course of hospitalization. Hgb 9.3 upon discharge and stable from yesterday. EGD showed 2 non-actively bleeding ulcers at the EG junction. No hematemesis or hematochezia during hospitalization; none since episode on 10/05/16. Peptic Ulcer Disease * New diagnosis; stable. EGD verified 2 non-actively bleeding ulcers at the EG junction. Patient home with new medications: pantoprazole 40 mg PO twice daily and carafate 1,000 mg QID. Instructed to avoid NSAIDs and alcohol. Postoperative cellulitis of surgical wound * Resolved; evaluated by orthopedic, Dr. Goodman. [id number] diabetes mellitus without complications * Chronic and stable: continue on metformin. Hypertension * Chronic and stable: continue home medications. Status post transcatheter aortic valve replacement (TAVR) using bioprosthesis * Chronic and stable: restarted on plavix. - HPI History of Present Illness: Patient admitted for acute blood loss anemia related to one episode of hematochezia and hematemesis at home associated with fatigue, lightheadedness, and pallor. He has a history of aortic stenosis with a TAVR 05/2016. He had a total right knee replacement [address] Goodman and was started on antibiotics (bactrim and keflex) for cellulitis of the incision several days prior to arrival. He restarted his plavix after surgery on 09/27/16. His hgb was 6.7 upon admission and he received 2 units PRBC that night. He was treated with protonix 40 mg IV twice daily. He had an expected increase in Hgb to 9.1 and remained hemodynamically stable. General surgeon, Dr. Marcelino consulted on the patient; upper endoscopy showed 2 non-bleeding peptic ulcers at the EG junction. Patient continued on protonix and started on 1,000 mg PO carafate ACHS. He stayed a second night to continue monitoring and received a 3rd unit of PRBC. He had no recurrent episodes of hematochezia or hematemesis, remained hemodynamically stable, and reported feeling improved. His plavix was restarted for prophylaxis with his prosethetic valve. He was treated with ancef 1 gm IV every 6 hours during hospitalization for the cellulitis to his right knee incision. Dr. Goodman evaluated surgical site while the patient was here and we concur that the cellulitis is resolved. No antibiotics upon discharge. The patient continued with physical therapy while inpatient to prevent regression in his rehabilitation. - CONSULTS | PROCEDURES Consultations: Dr. Marcelino; General Surgeon Procedures: Consultation for acute blood loss with hematemesis and hematochezia and evaluation for probable gastrointestinal bleed. Upper endoscopy completed 2016 showing two non-bleeding ulcers at the EG junction. - HOSPITAL COURSE Hospital Course: Patient was monitored with q6h CBC, initially received 2 units of PRBC which increased his hgb from 6.7 to 9.1. He was taken for upper endoscopy and 2 non- bleeding ulcers were found at the EG junction. Patient's plavix was restarted for his prosthetic valve (TAVR). Patient's diet advanced, home medication restarted, and started on carafate QID and protonix BID. He stayed a second night and received a third unit of PRBC to improve his hgb further. No recurrent episodes of hematemesis or hematochezia and patient remained hemodynamically stable throughout hospitalization. He will continue on pantoprazole and carafate x 1 month and follow up with Dr. Marcelino in 6 weeks. Greater than 30 minutes was spent in discharge. - ALLERGIES Allergies/Adverse Reactions: Allergies Allergy/AdvReac Type Severity Reaction Status Date / Time oxycodone AdvReac Unknown Verified 10/05/16 15:52 - MEDICATIONS Home Medications: Ambulatory Orders Medication Instructions Recorded Confirmed Rosuvastatin [Crestor] 10 mg PO DAILY 01/07/13 10/05/16 Sertraline [Zoloft] 50 mg PO DAILY 01/07/13 10/05/16 Methotrexate 20 mg PO Q7D 04/08/16 10/05/16 Lorazepam [Ativan] 0.5 mg PO DAILY PM 04/12/16 10/05/16 Clopidogrel [Plavix] 75 mg PO DAILY 09/12/16 10/05/16 Cyanocobalamin (Vitamin B-12) 1,000 mcg SL BID 09/12/16 10/05/16 [Vitamin B-12 (1000 mcg sublingual)] Ferrous Sulfate 325 mg PO BID 09/12/16 10/05/16 Levothyroxine [Synthroid] 25 mcg PO QDAC 09/12/16 10/05/16 Cholecalciferol (Vitamin D3) 2,000 unit PO DAILY 09/24/16 10/05/16 [Vitamin D3] Lisinopril [Zestril] 40 mg PO DAILY 09/24/16 10/05/16 Potassium Chloride 10 meq PO DAILY 09/24/16 10/05/16 Tamsulosin [Flomax] 0.4 mg PO DAILY 09/24/16 10/05/16 amLODIPine [Norvasc] 10 mg PO DAILY 09/24/16 10/05/16 metFORMIN [Glucophage] 500 mg PO BIDWM 09/24/16 10/05/16 Acetaminophen [Tylenol] 650 - 975 mg PO Q4HR PRN #0 tablet 09/26/16 10/05/16 Bisacodyl [Dulcolax] 10 mg PO Q12H PRN #30 tablet 09/26/16 10/05/16 diphenhydrAMINE [Benadryl] 25 mg PO Q6H PRN #0 capsule 09/26/16 10/05/16 traMADol [Ultram] 50 mg PO Q4HR PRN #50 tablet 09/26/16 10/05/16 Pantoprazole [Protonix] 40 mg PO BID #60 tablet 10/06/16 Sucralfate [Carafate] 1 gm PO ACHS #120 tablet 10/06/16 - PHYSICAL EXAM AT DISCHARGE General Appearance: positive: No acute distress, Alert Eyes Bilateral: positive: Normal inspection Neck: positive: Nml inspection, Trachea midline Respiratory: positive: Chest non-tender, No respiratory distress, Breath sounds nml. negative: Wheezes, Rales, Rhonchi Cardiovascular: positive: Regular rate & rhythm, Systolic murmur (3/5 heard best at 2nd intercostal space.) Peripheral Pulses: positive: 2+ (radial and pedal.) Abdomen: positive: Non-tender, No organomegaly, Nml bowel sounds, No distention Back: positive: Nml inspection Skin: positive: Color nml, Warm, Dry Extremities: positive: Other (Dressing over midline incision to right knee from recent total knee replacement. 1+ pitting edema surrounding knee. JAIME hose in place to lower extremity. Good CMS.) Neurologic/Psychiatric: positive: Oriented x3, CN's nml (2-12), Motor nml, Sensation nml, Mood/affect nml - LABS Result Diagrams: 10/07/16 09:11 10/06/16 06:38 - FOLLOW UP Follow Up: Follow up with PCP, Dr. Maldonado in 2 weeks. Follow up with Orthopedic, Dr. Johnson as recommended."
== END 2016-10-07 12:15 | disposition home or self-care (01) | DRG 811 ==
LOC: EDUNIT# → ED 15:29 → UNDOADMOB 16:42 → OBS 16:42 → INTOOBSV 10-06 12:12 → OBSVTOIN 10-06 12:12 → MS3 10-06 14:10
PROVIDERS: ADMIT Specialist; ATTEND Specialist
PROC: 0DB68ZX Excision of Stomach, Via Natural or Artificial Opening Endoscopic, Diagnostic (ICD-10-PCS; 2016-10-06)
PROC: 0DB48ZX Excision of Esophagogastric Junction, Via Natural or Artificial Opening Endoscopic, Diagnostic (ICD-10-PCS; principal; 2016-10-06 10:15)
DX: K92.0 Hematemesis (principal); K92.1 Melena; D62 Acute posthemorrhagic anemia; K25.4 Chronic or unspecified gastric ulcer with hemorrhage; L03.115 Cellulitis of right lower limb; T81.4XXD Infection following a procedure, subsequent encounter; E11.9 Type 2 diabetes mellitus without complications; I10 Essential (primary) hypertension; J44.9 Chronic obstructive pulmonary disease, unspecified; M06.9 Rheumatoid arthritis, unspecified; E03.9 Hypothyroidism, unspecified; E78.00 Pure hypercholesterolemia, unspecified; F32.9 Major depressive disorder, single episode, unspecified; K44.9 Diaphragmatic hernia without obstruction or gangrene; K29.60 Other gastritis without bleeding; F41.9 Anxiety disorder, unspecified; F40.240 Claustrophobia; N40.1 Benign prostatic hyperplasia with lower urinary tract symptoms; R35.0 Frequency of micturition; Y83.8 Other surgical procedures as the cause of abnormal reaction of the patient, or of later complication, without mention of misadventure at the time of the procedure; Y79.3 Surgical instruments, materials and orthopedic devices (including sutures) associated with adverse incidents; Z98.1 Arthrodesis status; Z91.89 Other specified personal risk factors, not elsewhere classified; Z79.84 Long term (current) use of oral hypoglycemic drugs; Z79.02 Long term (current) use of antithrombotics/antiplatelets; Z79.2 Long term (current) use of antibiotics; Z95.2 Presence of prosthetic heart valve; Z87.11 Personal history of peptic ulcer disease; Z87.891 Personal history of nicotine dependence
CPT/HCPCS: 36415; 36430; 80053; 81001; 81003; 83036; 83690; 85014; 85018; 85025; 85610; 85730; 86850; 86900; 86901; 86920; 87086; 88305; 96361; 96365; 96366; 96374; 96375; 96376; 99283; 99285

== ENCOUNTER 2016-10-17 07:12 | Emergency (ER) | payer MEDICARE, OTHER ==
[2016-10-17] MEDS ORDERED: ONDANSETRON 4 MG/2 ML VIAL IVP STA (07:36)
[2016-10-17] MEDS ORDERED: PANTOPRAZOLE 40 MG VIAL IVP STA (07:36)
[2016-10-17] MEDS ORDERED: PANTOPRAZOLE 80 MG in SODIUM CHLORIDE 0.9% 100ML 100 ML IV STA (07:36)
[2016-10-17] MEDS ORDERED: SODIUM CHLORIDE 0.9% 1,000 ML IV ONE (07:36)
[2016-10-17] MEDS ORDERED: SODIUM CHLORIDE FLUSH 0.9% 10 ML SYRINGE IVP ONE ×4 (07:58→10:51)
--- NOTE | 2016-10-17 08:04 | ED Physician Documentation ---
History of Present Illness - Stated complaint Stated Complaint: ABD PX/VOMITING - Chief complaint Chief Complaint: Abd Pain - Additonal information Additional information: Patient is a 71-year-old male who comes in with a complaint of hematemesis starting this morning. Yesterday he felt unwell all day but did not have any pain nausea or vomiting. He has not noticed any dark colored stools. He woke up this morning felt unwell went to bed and woke up with nausea and vomiting. He vomited up a large red blood clot. From that time to the present he is felt nauseated but has not had any recurrent episodes of vomiting. He has no pain he does not feel weak and there is no complaints of fever. He has not noticed any dark colored stools recently. He was admitted here at the end of the month and had endoscopy done. The endoscopy demonstrated 5 well-circumscribed shallow ulcers without adherent clot or active bleeding. The patient was placed on Protonix and Carafate and his Motrin was removed. Unfortunately he did require 3 units of blood. The patient is still refraining for Motrin use but is still on Plavix as directed by his assistant professor of forestry. The patient is status post T AVR in May 2016 done at [facility]. He has been instructed to take Plavix for life. He is not taking aspirin or any other anticoagulant medication. He is not a drinker of alcohol. Review of systems: For pertinent positive and negatives in the review of systems please see the history of present illness, otherwise all other systems have been reviewed and are negative. Dragon disclaimer: Parts of this medical record were created using voice recognition technology. Because of the inherent limitations of this system, occasional same sounding word substitutions do occur and persist despite proofreading. Please read the document for context. Review of Systems Ten Systems: 10 systems reviewed and negative Constitutional: denies: Fever, Chills, Myalgias Eyes: denies: Loss of vision Ears: denies: Ear pain Nose: denies: Rhinorrhea / runny nose, Foreign Body Throat: denies: Oral lesions / sores Cardiac: denies: Chest pain / pressure, Palpitations Respiratory: denies: Dyspnea, Cough GI: reports: Vomiting, Hematemesis. denies: Abdominal Pain, Abdominal Swelling , Nausea, Bloody / black stool : denies: Dysuria, Frequency, Hesitancy PD PAST MEDICAL HISTORY - Past Medical History Past Medical History: Yes Cardiovascular: Hypertension, High cholesterol, Murmur, Valve disorder Respiratory: COPD Neuro: Motion sickness Endocrine/Autoimmune: Type 2 diabetes, HyPOthyroidism GI: Ulcers : Benign prostate hypertrophy, Frequency HEENT: None Psych: Depression, Claustrophobia Musculoskeletal: Rheumatoid arthritis Derm: None - Past Surgical History General: Appendectomy, Colonoscopy Ortho: Knee replacement, Carpal Tunnel surgery, Spine surgery, Other Cardiovascular: Valve replacement HEENT: Cataracts - Present Medications Home Medications: Ambulatory Orders Medication Instructions Recorded Confirmed Rosuvastatin [Crestor] 10 mg PO DAILY 01/07/13 10/17/16 Sertraline [Zoloft] 50 mg PO DAILY 01/07/13 10/17/16 Methotrexate 20 mg PO Q7D 04/08/16 10/17/16 Lorazepam [Ativan] 0.5 mg PO DAILY PM 04/12/16 10/17/16 Clopidogrel [Plavix] 75 mg PO DAILY 09/12/16 10/17/16 Cyanocobalamin (Vitamin B-12) 1,000 mcg SL BID 09/12/16 10/17/16 [Vitamin B-12 (1000 mcg sublingual)] Ferrous Sulfate 325 mg PO BID 09/12/16 10/17/16 Levothyroxine [Synthroid] 25 mcg PO QDAC 09/12/16 10/17/16 Cholecalciferol (Vitamin D3) 2,000 unit PO DAILY 09/24/16 10/17/16 [Vitamin D3] Lisinopril [Zestril] 40 mg PO DAILY 09/24/16 10/17/16 Potassium Chloride 10 meq PO DAILY 09/24/16 10/17/16 Tamsulosin [Flomax] 0.4 mg PO DAILY 09/24/16 10/17/16 amLODIPine [Norvasc] 10 mg PO DAILY 09/24/16 10/17/16 metFORMIN [Glucophage] 500 mg PO BIDWM 09/24/16 10/17/16 Acetaminophen [Tylenol] 650 - 975 mg PO Q4HR PRN #0 tablet 09/26/16 10/17/16 Bisacodyl [Dulcolax] 10 mg PO Q12H PRN #30 tablet 09/26/16 10/17/16 diphenhydrAMINE [Benadryl] 25 mg PO Q6H PRN #0 capsule 09/26/16 10/17/16 traMADol [Ultram] 50 mg PO Q4HR PRN #50 tablet 09/26/16 10/17/16 Pantoprazole [Protonix] 40 mg PO BID #60 tablet 10/06/16 10/17/16 Sucralfate [Carafate] 1 gm PO ACHS #120 tablet 10/06/16 10/17/16 - Allergies Allergies/Adverse Reactions: Allergies Allergy/AdvReac Type Severity Reaction Status Date / Time oxycodone AdvReac Unknown Verified 10/05/16 15:52 - Social History Does the pt smoke?: Yes Smoking Status: Current every day smoker Does the pt drink ETOH?: No Does the pt have substance abuse?: No - Immunizations Immunizations are current?: Yes - POLST Patient has POLST: No POLST Status: Full Code PD ED PE NORMAL - General General: Alert and oriented X 3, No acute distress, Well developed/nourished, Other (Well-appearing male sitting upright in bed. He is mildly diaphoretic he appears nauseous.) - HEENT HEENT: Atraumatic, Pharynx benign - Neck Neck: Supple, no meningeal sign - Cardiac Cardiac: RRR, No murmur, No gallop, No rub - Respiratory Respiratory: No respiratory distress, Clear bilaterally - Abdomen Abdomen: Normal bowel sounds, Soft, Non tender, Non distended - Derm Derm: Normal color, Warm and dry - Extremities Extremities: No deformity, No tenderness to palpate, Normal ROM s pain - Neuro Neuro: Alert and oriented X 3, No motor deficit, No sensory deficit - Psych Psych: Normal mood, Normal affect Results - Vitals Vitals: Vital Signs - 24 hr 10/17/16 10/17/16 07:19 08:32 Temperature 36.7 C Heart Rate 100 85 Respiratory 18 18 Rate Blood Pressure 103/51 L 120/61 O2 Saturation 96 94 Oxygen O2 Source Room air - Labs Labs: Laboratory Tests 10/17/16 10/17/16 10/17/16 07:55 07:55 07:55 WBC 8.9 RBC 2.92 L Hgb 8.2 L Hct 24.8 L MCV 85.1 MCH 28.2 MCHC 33.2 RDW 17.2 H Plt Count 588 H MPV 7.1 L Neut # 7.1 H Lymph # 0.7 L Hawkins # 0.8 Eos # 0.1 Baso # 0.1 Absolute Nucleated RBC 0.00 Nucleated RBCs 0.0 PT 13.6 H INR 1.2 Sodium 133 L Potassium 4.2 Chloride 100 L Carbon Dioxide 22 Anion Gap 11.0 BUN 17 Creatinine 1.0 Estimated GFR (MDRD) 73 L Glucose 170 H Calcium 9.2 Total Bilirubin 0.4 AST 29 ALT 17 Alkaline Phosphatase 81 Troponin I Total Protein 7.4 Albumin 2.9 L Globulin 4.5 H Albumin/Globulin Ratio 0.6 L Lipase 31 Blood Type Antibody Screen 10/17/16 10/17/16 07:55 07:55 WBC RBC Hgb Hct MCV MCH MCHC RDW Plt Count MPV Neut # Lymph # Hawkins # Eos # Baso # Absolute Nucleated RBC Nucleated RBCs PT INR Sodium Potassium Chloride Carbon Dioxide Anion Gap BUN Creatinine Estimated GFR (MDRD) Glucose Calcium Total Bilirubin AST ALT Alkaline Phosphatase Troponin I < 0.04 Total Protein Albumin Globulin Albumin/Globulin Ratio Lipase Blood Type A NEGATIVE Antibody Screen NEGATIVE PD MEDICAL DECISION MAKING - ED course Complexity details: reviewed old records, reviewed results, re-evaluated patient , considered differential, d/w patient, d/w family, d/w jd edwards consultant ED course: 71-year-old man with a recent history and admission for upper GI bleed found to have 5 ulcers some near the GE junction none of which were bleeding. He was on Motrin at that time and is been taken off the Motrin. He is still taking Plavix as directed by his CT surgeon. He is status post T AVR of his aortic valve. He presents today with the onset of generalized malaise and had a large- volume hematemesis 1 with a blood clot this morning. He has not noticed any hematochezia but on examination he does have blood flecks stool present. His hemoglobin is 8.2 on discharge on 10/07 he was 9.3. His BUN is not elevated at this time. He has been placed on a Protonix high-dose bolus and drip at present. He is typed and crossed the rest of his labs are normal chest x-ray shows no acute disease. EKG shows normal sinus rhythm [address] and QT intervals are normal the QRS is prolonged and left bundle branch block type pattern,. The patient also received 1 L of saline a small amount of pain medication for his legs. He has no abdominal pain and no abdominal tenderness at this time. We are seeking admission her facility was notified that we have no beds for this patient at present because he has physicians at [facility] I think their facilities a next logical choice. Disposition: Transfer to [facility] new Clinical impression: 1. Upper gastrointestinal bleeding-hemoglobin 8.2 on high-dose Protonix bolus and drip 2. Patient is on Plavix for recent T AVR of the aortic valve
[2016-10-17] MEDS ORDERED: ONDANSETRON 4 MG/2 ML VIAL ONE (08:13)
[2016-10-17] MEDS ORDERED: PANTOPRAZOLE 40 MG VIAL ONE (08:14)
[2016-10-17 08:21] LABS: BASOPHILS # (AUTO) 0.1 10^3/uL (0.0-0.1); BASOPHILS % (AUTO) 1.2 %; EOSINOPHILS # (AUTO) 0.1 10^3/uL (0.0-0.7); EOSINOPHILS % (AUTO) 0.8 %; HCT - HEMATOCRIT 24.8 % (42.0-52.0); HGB - HEMOGLOBIN 8.2 g/dL (14.0-18.0); LYMPHOCYTES # (AUTO) 0.7 10^3/uL (1.5-3.5); LYMPHOCYTES % (AUTO) 8.1 %; MEAN CORPUSCULAR HEMOGLOBIN 28.2 pg (27.0-31.0); MEAN CORPUSCULAR HGB CONC 33.2 g/dL (32.0-36.0); MEAN CORPUSCULAR VOLUME 85.1 fL (80.0-94.0); MEAN PLATELET VOLUME 7.1 fL (7.4-11.4); MONOCYTES # (AUTO) 0.8 10^3/uL (0.0-1.0); MONOCYTES % (AUTO) 9.2 %; NEUTROPHILS # (AUTO) 7.1 10^3/uL (1.5-6.6); NEUTROPHILS % (AUTO) 80.7 %; RED BLOOD COUNT 2.92 10^6/uL (4.70-6.10); RED CELL DISTRIBUTION WIDTH 17.2 % (12.0-15.0); UNCORRECTED WHITE BLOOD COUNT 8.9 x10^3/uL; WHITE BLOOD COUNT 8.9 x10^3/uL (4.8-10.8)
[2016-10-17 08:29] LABS: INR 1.2 (0.8-1.2); PT - PROTHROMBIN TIME 13.6 secs (9.9-12.6)
[2016-10-17 08:32] LABS: ALBUMIN/GLOBULIN RATIO 0.6 (1.0-2.2); BILIRUBIN,TOTAL 0.4 mg/dL (0.2-1.0); CALCIUM 9.2 mg/dL (8.5-10.3); POTASSIUM 4.2 mmol/L (3.5-5.0); TOTAL PROTEIN 7.4 g/dL (6.7-8.2)
--- NOTE | 2016-10-17 09:06 | XRAY Preliminary Report ---
Exam: XR Chest 1 View IMPRESSION: Question left basilar airspace process. Otherwise negative portable chest. [facility] SITE ID: [id number]
--- NOTE | 2016-10-17 09:08 | XRAY Report ---
EXAM: CHEST RADIOGRAPHY EXAM DATE: 10/17/2016 08:45 AM. CLINICAL HISTORY: Ugi bleed. COMPARISON: 08/09/2016. TECHNIQUE: 1 view. FINDINGS: Lungs/Pleura: Question left basilar airspace process. No other focal opacities evident. No pleural ef fusion. No pneumothorax. Mediastinum: Within exam limitations, cardiomediastinal contour is normal. Other: None. IMPRESSION: Question left basilar airspace process. Otherwise negative portable chest. [facility] Referring Provider Line: [phone] SITE ID: [id number]
[2016-10-17] MEDS ORDERED: HYDROmorphone 1 MG/ML SYRINGE IVP STA (09:17)
[2016-10-17 09:19] LABS: BILIRUBIN,URINE NEGATIVE (NEGATIVE)
[2016-10-17 09:29] LABS: UA CHARGE (STRIP ONLY) YES; UR CULTURE IF IND NOT INDICATED
[2016-10-17] MEDS ORDERED: HYDROmorphone 1 MG/ML SYRINGE ONE ×3 (09:31→10:59)
[2016-10-17 12:28] VITALS: BP 122/82
== END 2016-10-17 14:22 | disposition short-term general hospital (02) ==
LOC: ED 07:12
DX: K92.2 Gastrointestinal hemorrhage, unspecified (principal); I10 Essential (primary) hypertension; K25.9 Gastric ulcer, unspecified as acute or chronic, without hemorrhage or perforation; Z79.02 Long term (current) use of antithrombotics/antiplatelets; J44.9 Chronic obstructive pulmonary disease, unspecified; E11.9 Type 2 diabetes mellitus without complications; E03.9 Hypothyroidism, unspecified; M06.9 Rheumatoid arthritis, unspecified; Z95.2 Presence of prosthetic heart valve
CPT/HCPCS: 36415; 71010; 80053; 81003; 83690; 84484; 85025; 85610; 86850; 86900; 86901; 93005; 96365; 96366; 96375; 96376; 99284; 99285; J1170; 81001; 82270; 87086

== ENCOUNTER 2016-10-17 13:21 | Outpatient (CLI) | payer MEDICARE, OTHER | END 2016-10-17 13:22 | disposition short-term general hospital (02) | LOC: EMS 13:21 | PROVIDERS: ATTEND Surgery | DX: K92.2 Gastrointestinal hemorrhage, unspecified (principal) | CPT/HCPCS: A0425; A0428 ==

== ENCOUNTER 2016-10-23 13:22 | Outpatient (CLI) | payer MEDICARE, OTHER ==
[2016-10-23 17:48] LABS: BASOPHILS # (AUTO) 0.1 10^3/uL (0.0-0.1); BASOPHILS % (AUTO) 0.8 %; EOSINOPHILS # (AUTO) 0.1 10^3/uL (0.0-0.7); EOSINOPHILS % (AUTO) 1.4 %; HCT - HEMATOCRIT 24.7 % (42.0-52.0); LYMPHOCYTES # (AUTO) 1.1 10^3/uL (1.5-3.5); LYMPHOCYTES % (AUTO) 13.1 %; MEAN CORPUSCULAR HEMOGLOBIN 28.2 pg (27.0-31.0); MEAN CORPUSCULAR HGB CONC 32.5 g/dL (32.0-36.0); MEAN CORPUSCULAR VOLUME 86.6 fL (80.0-94.0); MEAN PLATELET VOLUME 7.3 fL (7.4-11.4); MONOCYTES # (AUTO) 1.1 10^3/uL (0.0-1.0); MONOCYTES % (AUTO) 13.2 %; NEUTROPHILS # (AUTO) 6.1 10^3/uL (1.5-6.6); NEUTROPHILS % (AUTO) 71.5 %; RED BLOOD COUNT 2.85 10^6/uL (4.70-6.10); RED CELL DISTRIBUTION WIDTH 18.7 % (12.0-15.0); UNCORRECTED WHITE BLOOD COUNT 8.5 x10^3/uL; WHITE BLOOD COUNT 8.5 x10^3/uL (4.8-10.8)
== END 2016-10-23 13:23 | disposition home or self-care (01) ==
LOC: LAB.F 13:22
PROVIDERS: ATTEND Specialist
DX: D64.9 Anemia, unspecified (principal)
CPT/HCPCS: 36415; 85025

== ENCOUNTER 2016-10-26 04:26 | Outpatient (CLI) | payer MEDICARE, OTHER | END 2016-10-26 04:27 | disposition short-term general hospital (02) | LOC: EMS 04:26 | PROVIDERS: ATTEND Surgery | DX: R06.02 Shortness of breath (principal) | CPT/HCPCS: A0425; A0427 ==